=== PATIENT | female | born 1945 | race Caucasian/White ===

== ENCOUNTER 2020-06-28 07:34 | Day surgery (SDC) | payer MEDICARE, SELFPAY ==
[2020-06-24 08:20] VITALS: BMI 26.7
--- NOTE | 2020-06-24 08:28 | P.CONAN_ITS ---
Documented by User: Avril Clayton 06/25/20 09:49 HPI - Anesthesia Eval Consult details Narrative: 74yo F for colonoscopy PMFSH Past Medical History Medical History Hx of skin cancer, basal cell Hyperlipemia Recovering alcoholic Restless leg syndrome Surgical History Surgical History Hx of cholecystectomy Hx of colonoscopy History of Problems with Anesthesia: Yes (PONV) Social History Social History Are you a primary health care social worker to a significant other at home: No Do you presently have visiting nurse or other home services: No Smoking Status: Former smoker Smoking Quit Date: 1993 Second Hand Smoke Exposure: No Use of substances other than those prescribed or required for medical reasons: No Advance Directives: No Advance Directives Information Provided: No Advance Directives on File: No Recently lost weight without trying: No Meds Allergies Allergy/AdvReac Type Severity Reaction Status Date / Time hydrocodone [From VICODIN] Allergy Unknown UNK Unverified 06/10/20 17:22 fentanyl Allergy Unknown Verified 06/25/20 08:47 Home Medications Medication Instructions Recorded Confirmed Type atorvastatin 10 mg PO BEDTIME 06/23/20 06/23/20 History gabapentin 2 cap PO BID 06/23/20 06/23/20 History multivitamin 1 tab PO DAILY 06/23/20 06/23/20 History ropinirole 1 tab PO BEDTIME 06/23/20 06/23/20 History docusate sodium [Colace] 100 mg PO BID 06/24/20 06/24/20 History Exam Exam Date and Time: June 24, 2020 0828 Height,Weight and Vital Signs: Height 5 ft 7 in Weight 77.564 kg Pertinent Lab Results Pertinent Lab Results: Laboratory Tests 06/16/20 06/16/20 07:45 07:45 WBC 4.1 L Hgb 13.1 Hct 40.9 Plt Count 209 Sodium 142 Potassium 4.2 Chloride 109 H Bicarbonate 27 BUN 17 H Creatinine 0.67 Est GFR (Non-Af Amer) > 60 Assessment and Plan Assessment Anesthesia Assessment: Chart Reviewed (06/24/20 HT) Documented by User: Hieu Waggoner CRNA 06/28/20 08:16 [facility] Past Medical History Medical History Hx of skin cancer, basal cell Hyperlipemia Recovering alcoholic Restless leg syndrome Surgical History Surgical History Hx of cholecystectomy Hx of colonoscopy Social History Social History Are you a primary health care social worker to a significant other at home: No Do you presently have visiting nurse or other home services: No Smoking Status: Former smoker Smoking Quit Date: 1993 Second Hand Smoke Exposure: No Use of substances other than those prescribed or required for medical reasons: No Advance Directives: No Advance Directives Information Provided: No Advance Directives on File: No Recently lost weight without trying: No Meds Allergies Allergy/AdvReac Type Severity Reaction Status Date / Time hydrocodone [From VICODIN] Allergy Unknown UNK Unverified 06/10/20 17:22 fentanyl Allergy Unknown Verified 06/25/20 08:47 Home Medications Medication Instructions Recorded Confirmed Type atorvastatin 10 mg PO BEDTIME 06/23/20 06/23/20 History gabapentin 2 cap PO BID 06/23/20 06/23/20 History multivitamin 1 tab PO DAILY 06/23/20 06/23/20 History ropinirole 1 tab PO BEDTIME 06/23/20 06/23/20 History docusate sodium [Colace] 100 mg PO BID 06/24/20 06/24/20 History Assessment and Plan Assessment Anesthesia Assessment: Anesthesia Plan Discussed, Consent Obtained and Chart Reviewed Final Anesthetic Review NPO: Yes ASA Class: II Final Preanesthetic Review: No Changes in Pt Med Stat, Meds & Allergies Reviewed, Consent Obtained/Reviewed, Med/Surg/Anes Hx Reviewed and Anes Risks/Benef Reviewed Anesthetic Plan Anesthetic Plan: MAC: Disposition: Standard PACU Documented by User: Tomeka Lambert 06/28/20 08:18 PMFSH Past Medical History Medical History Hx of skin cancer, basal cell Hyperlipemia Recovering alcoholic Restless leg syndrome Surgical History Surgical History Hx of cholecystectomy Hx of colonoscopy Social History Social History Are you a primary health care social worker to a significant other at home: No Do you presently have visiting nurse or other home services: No Smoking Status: Former smoker Smoking Quit Date: 1993 Second Hand Smoke Exposure: No Use of substances other than those prescribed or required for medical reasons: No Advance Directives: No Advance Directives Information Provided: No Advance Directives on File: No Recently lost weight without trying: No Meds Allergies Allergy/AdvReac Type Severity Reaction Status Date / Time hydrocodone [From VICODIN] Allergy Unknown UNK Unverified 06/10/20 17:22 fentanyl Allergy Unknown Verified 06/25/20 08:47 Home Medications Medication Instructions Recorded Confirmed Type atorvastatin 10 mg PO BEDTIME 06/23/20 06/23/20 History gabapentin 2 cap PO BID 06/23/20 06/23/20 History multivitamin 1 tab PO DAILY 06/23/20 06/23/20 History ropinirole 1 tab PO BEDTIME 06/23/20 06/23/20 History docusate sodium [Colace] 100 mg PO BID 06/24/20 06/24/20 History Exam Airway Mallampati Class: II TM Dist: >3cm Denture: Upper Loose/Missing/Broken Teeth: No Heart: RRR Lungs: CTA
[2020-06-28 07:49] VITALS: BP 134/65; PULSE 75; RESP 20; TEMP 36.4; O2SAT 100
[2020-06-28] MEDS: Lactated Ringers 1,000 ML 100 ML IVCONT (07:58)
[2020-06-28 09:02] VITALS: BP 112/51; PULSE 60; RESP 18; TEMP 36.2; O2SAT 98
[2020-06-28 09:17] VITALS: BP 127/54; PULSE 53; O2SAT 99
--- NOTE | 2020-06-28 09:31 | HO.POSTANES ---
Post Anesthesia Evaluation Post Anesthesia Evaluation Vital Signs: Vital Signs Temp Pulse Resp BP Pulse Ox 06/28/20 09:17 53 127/54 L 99 06/28/20 09:02 97.2 F 60 18 112/51 L 98 06/28/20 07:49 97.6 F 75 20 134/65 100 Anesthesia: Monitored Mental Status: Awake Pain Control: Satisfactory Nausea/Vomiting: None Hydration: Adequate Anesthesia-Related Issues: No Anes. Related Issues
--- NOTE | 2020-06-28 10:20 | OP_ITS ---
SURGEON: Home Chow MD INDICATIONS: The patient presents for evaluation of colorectal cancer screening and prior history of tubular adenoma of the colon. Full consent has been obtained from her for this, including risks of bleeding and perforation. PREOPERATIVE DIAGNOSIS: POSTOPERATIVE DIAGNOSIS: PROCEDURE PERFORMED: Colonoscopy to cecum and terminal ileum. ESTIMATED BLOOD LOSS: COMPLICATIONS: ANESTHESIA: Monitored anesthesia care. ASSISTANTS: SPECIMENS: PREOPERATIVE DIAGNOSES: Colorectal cancer screening and prior history of tubular adenomas of the colon. POSTOPERATIVE DIAGNOSES: Colorectal cancer screening and prior history of tubular adenomas of the colon, diverticulosis and internal hemorrhoids. DESCRIPTION OF PROCEDURE: The patient was placed in the left lateral decubitus position. The digital rectal exam revealed no abnormalities. The Olympus video pediatric colonoscope was entered into the rectum and advanced easily to the cecum. Once in the cecum, I did identify normal-appearing cecal pouch with appendiceal orifice and a normal-appearing ileocecal valve. The terminal ileum was cannulated and appeared normal. The scope was withdrawn back in the colon. The entire cecum and ileocecal valve appeared normal. The scope was slowly withdrawn assessing all mucosal surfaces carefully. For the most part, preparation was excellent throughout the colon other than some small areas of stool, which were irrigated and washed away as best as possible. I did not visualize any sign of polyps, colitis, nor angiodysplasia. There was a mild amount of sigmoid diverticulosis. In the rectum, scope was retroflexed visualizing internal hemorrhoids, but no other pathology. The rectal mucosa appeared normal. The scope was straightened out and withdrawn from the patient. She tolerated the procedure well and was returned to recovery area in stable condition. IMPRESSION: 1. Diverticulosis. 2. Internal hemorrhoids. PLAN: Given the patient's negative exam, a negative exam in 2013, and her age, I do not think she will need any further screening colonoscopies in the future. She will otherwise see me on a p.r.n. basis. MD SIMONE Mitchell/BRISA / [id number]
== END 2020-06-28 10:28 | disposition home or self-care (01) ==
PROVIDERS: PCP Internal Medicine; Visit Provider Internal Medicine
PROC: 0DJD8ZZ Inspection of Lower Intestinal Tract, Via Natural or Artificial Opening Endoscopic (ICD-10-PCS; CPT 45378; principal; 2020-06-28 08:30)
DX: Z12.11 Encounter for screening for malignant neoplasm of colon (principal); Z86.010 Personal history of colon polyps; K57.30 Diverticulosis of large intestine without perforation or abscess without bleeding; K64.8 Other hemorrhoids; E78.5 Hyperlipidemia, unspecified; Z79.899 Other long term (current) drug therapy; Z90.49 Acquired absence of other specified parts of digestive tract; Z88.8 Allergy status to other drugs, medicaments and biological substances
CPT/HCPCS: G0105

== ENCOUNTER 2020-11-30 07:49 | Outpatient (REF) | payer MEDICARE, SELFPAY ==
[2020-11-30 12:10] LABS: Alanine Aminotransferase 24 U/L (0-31); Albumin Level 4.1 g/dL (3.5-5.0); Alkaline Phosphatase 44 U/L (39-117); Anion Gap 12 (12-20); Aspartate Amino Transferase 19 U/L (5-31); Bilirubin Total 0.3 mg/dL (0.0-1.0); Blood Urea Nitrogen 16 mg/dL (9-16); Calcium 9.2 mg/dL (8.4-10.2); Carbon Dioxide 26 mmol/L (22-29); Chloride 108 mmol/L (96-108); Cholesterol 218 mg/dL; Estimated Glomerular Filt Rate > 60; Glucose Fasting 96 mg/dL (60-99); HDL Cholesterol 75 mg/dL; LDL Cholesterol Calculated 127 mg/dl; Potassium 3.9 mmol/L (3.3-5.1); Sodium 142 mmol/L (135-145); Total Protein 6.4 g/dL (6.5-8.0); Triglycerides 80 mg/dL
== END 2020-11-30 07:50 | disposition home or self-care (01) ==
LOC: HO.HMGCLDS 07:49
PROVIDERS: PCP Internal Medicine; Visit Provider Internal Medicine
DX: E78.00 Pure hypercholesterolemia, unspecified (principal)
CPT/HCPCS: 36415; 80053; 80061

== ENCOUNTER 2021-01-13 15:00 | Outpatient (RCR) | payer MEDICARE, SELFPAY | END 2021-06-02 12:02 | disposition home or self-care (01) | LOC: HO.PTCHIC 15:00 | PROVIDERS: PCP Internal Medicine; Visit Provider Physical Therapist | DX: S82.842A Displaced bimalleolar fracture of left lower leg, initial encounter for closed fracture (principal) | CPT/HCPCS: 97014; 97110; 97112; 97140; 97161 ==

== ENCOUNTER 2021-03-29 15:54 | Outpatient (REF) | payer MEDICARE, SELFPAY ==
--- NOTE | ~2021-03-29 | XR_ITS ---
EXAMINATION: XR KNEE, LEFT XR, TIBIA AND FIBULA, LEFT CLINICAL INFORMATION: Pain. COMPARISON: Ankle study of 07/30/2019. TECHNIQUE: AP and lateral views of the left tibia and fibula. Four views of the left knee. FINDINGS: LEFT KNEE: Views of the left knee do not demonstrate any evidence of acute fracture or dislocation. There is mild narrowing of the medial joint space compartment with minimal marginal spurring seen. No knee effusion is appreciated. There is spurring at the undersurface of the patella. Patellar spur at the insertion of the quadriceps tendon is seen. LEFT TIBIA AND FIBULA: AP and lateral views of the left tibia and fibula demonstrate some remodeling of the distal fibula consistent with healed fracture. There is some calcification of the syndesmosis. Ankle mortise appears intact. There is some degenerative spurring about the tibiotalar joint and fibulotalar joint. Calcaneal spurs at the sites of insertion of the Achilles and plantar tendons are seen. XR/XR tibia fibula LT 2V IMPRESSION: Mild narrowing of the medial joint space compartment of the left knee. Degenerative change patellofemoral joint. 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
--- NOTE | ~2021-03-29 | XR_ITS ---
EXAMINATION: XR KNEE, LEFT XR, TIBIA AND FIBULA, LEFT CLINICAL INFORMATION: Pain. COMPARISON: Ankle study of 07/30/2019. TECHNIQUE: AP and lateral views of the left tibia and fibula. Four views of the left knee. FINDINGS: LEFT KNEE: Views of the left knee do not demonstrate any evidence of acute fracture or dislocation. There is mild narrowing of the medial joint space compartment with minimal marginal spurring seen. No knee effusion is appreciated. There is spurring at the undersurface of the patella. Patellar spur at the insertion of the quadriceps tendon is seen. LEFT TIBIA AND FIBULA: AP and lateral views of the left tibia and fibula demonstrate some remodeling of the distal fibula consistent with healed fracture. There is some calcification of the syndesmosis. Ankle mortise appears intact. There is some degenerative spurring about the tibiotalar joint and fibulotalar joint. Calcaneal spurs at the sites of insertion of the Achilles and plantar tendons are seen. XR/XR knee LT 4V IMPRESSION: Mild narrowing of the medial joint space compartment of the left knee. Degenerative change patellofemoral joint. 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
== END 2021-03-29 15:55 | disposition home or self-care (01) ==
LOC: HO.XRAY 15:54
PROVIDERS: PCP Internal Medicine; Visit Provider Internal Medicine
DX: M25.561 Pain in right knee (principal); M79.662 Pain in left lower leg
CPT/HCPCS: 73564; 73590

== ENCOUNTER → 2021-04-18 07:47 | Outpatient (BNVA) | payer MEDICARE, SELFPAY | PROVIDERS: PCP Internal Medicine; Visit Provider Physician Assistant | DX: M79.662 Pain in left lower leg (principal); Z87.81 Personal history of (healed) traumatic fracture | CPT/HCPCS: 99202; 99212 ==

== ENCOUNTER 2021-04-27 20:25 | Emergency (ER) | payer MEDICARE, SELFPAY ==
--- NOTE | ~2021-04-27 | US_ITS ---
EXAMINATION: US VENOUS ULTRASOUND WITH DOPPLER LOWER EXTREMITY, LEFT CLINICAL INFORMATION: Calf pain, rule out DVT COMPARISON: None TECHNIQUE: Ultrasound of the deep veins is performed from the hip to the calf with compression sonography and color and pulse Doppler assessment. Spectral analysis with color-flow imaging is performed. FINDINGS: There is normal venous compression and respiratory variation and augmented flow. The visualized common femoral vein, superficial femoral vein, profunda femoral vein, popliteal vein, and the trifurcation region shows no evidence of deep venous thrombosis. There is no significant popliteal fossa cyst. If the patient's symptoms persist, followup ultrasound in 5 days 7 days might be of value to exclude proximal propagation from a non-visualized calf vein. US/US venous duplex LE IMPRESSION: No DVT demonstrated in the left lower extremity.
[2021-04-27 20:31] VITALS: BP 134/71; PULSE 69; RESP 16; O2SAT 97; BMI 28.0
--- NOTE | 2021-04-27 21:42 | ED_ITS ---
HPI - Extremity Injury (Lower) General Chief Complaint: Extremity Injury, Lower Stated Complaint: Left leg pain Time Seen by Provider: 04/27/21 21:41 Source: patient Mode of arrival: ambulatory Limitations: no limitations History of Present Illness HPI Narrative: 75-year-old female came in for evaluation of left leg pain. Constant pain started 3 weeks ago which is progressively getting worse, for the last 2 days pain is severe and more constant, pain is localized to the calf area, no swelling, no history of DVT, no shortness of breath. Patient had a history of breaking her right ankle twice in the past. Related Data Home Medications Medication Instructions Recorded Confirmed atorvastatin 10 mg tablet 10 mg PO BEDTIME 06/23/20 06/23/20 gabapentin 300 mg capsule 2 cap PO BID 06/23/20 06/23/20 multivitamin 1 tab PO DAILY 06/23/20 06/23/20 ropinirole 2 mg tablet 1 tab PO BEDTIME 06/23/20 06/23/20 Allergies Allergy/AdvReac Type Severity Reaction Status Date / Time hydrocodone [From VICODIN] Allergy Unknown UNK Verified 04/27/21 20:37 fentanyl Allergy Unknown Verified 04/27/21 20:37 Review of Systems Review of Systems: All other systems are reviewed and are negative Constitutional: Reports as per HPI and Reports no additional constitutional complaints Eyes: Reports as per HPI and Reports no additional eye complaints Reports system reviewed and no additional complaints, except as documented Cardiovascular: Reports as per HPI and Reports no additional cardiovascular complaints Respiratory: Reports as per HPI and Reports no additional respiratory complaints Gastrointestinal: Reports as per HPI and Reports no additional gastrointestinal complaints Genitourinary: Reports no additional female genitourinary complaints Musculoskeletal: Reports no additional musculoskeletal complaints Skin/Breast: Reports system reviewed and no additional complaints, except as docu Psychiatric: Reports no additional psychiatric complaints Endocrine: Reports no additional endocrine complaints Hematologic/Lymphatic: Reports no additional hematologic/lymphatic complaints Allergic/Immunologic: Reports no additional allergic/immunologic complaints Reports system reviewed and no additional complaints, except as documented and Reports Abnormal speech present. [facility] Past Medical History Medical History Hx of skin cancer, basal cell Hyperlipemia Recovering alcoholic Restless leg syndrome Surgical History Hx of cholecystectomy Hx of colonoscopy Social History Social History Are you a primary palliative care physician to a significant other at home: No Do you presently have visiting nurse or other home services: No Second Hand Smoke Exposure: No Advance Directives: No Advance Directives Information Provided: Yes Current occupational status: retired Current occupation: Right Handed Physical Exam Vital Signs: Vital Signs: Last Vital Signs Pulse 69 04/27/21 20:31 Resp 16 04/27/21 20:31 BP 134/71 04/27/21 20:31 Pulse Ox 97 04/27/21 20:31 Body Mass Index 28.0 Vital signs have been reviewed as appeared to be correct. Blood pressure normal. Heart rate normal. Respiration rate normal. Temperature normal. Oxy gen saturation normal. Appearance: Alert. Oriented X3. No acute distress. Head: Normal external exam. Normocephalic. Atraumatic. No Plummer signs noted. No raccoon eyes noted Eyes: PERRLA. EOMI. Conjunctiva and sclera normal. Eyelids normal. ENT: TM's Normal. Pharynx normal. Uvula midline. Moist mucous membranes. No trismus noted. No drooling noted. No muffled voice noted. Neck: Normal inspection. Neck supple. FROM. No adenopathy. Thyroid Normal. No meningeal signs. No neck mass noted. CVS: Normal heart rate and rhythm. Heart sound normal. No murmurs noted. Pulses normal throughout. Respiratory: No respiratory distress. Painless inspiration. Breath sounds n ormal. No wheezes/rales/rhonchi noted. Chest nontender. No accessory muscle usage noted or decreased air movement noted. Abdomen: Soft and nontender. Bowel sounds normal in all 4 quadrants. No diste ntion noted. No organomegaly noted. No visible injury noted. Back: No CVA tenderness. Full range of motion noted. Skin: Skin warm and dry. Normal skin color. Normal skin turgor. No rashes/lesions/lacerations noted. Extremities: No lower extremity edema. Extremities exhibit normal range of m otion. Extremities nontender. Neuro: Oriented X 3. No motor deficit. No sensory deficit. Reflexes normal. Course Course Course Narrative: Assessment and plan. 75-year-old female came in for left calf pain for the past 2 weeks patient had a history of left ankle fracture twice, patient has an appointment with Orthopedics next week, patient had an ultrasound in the emergency department showed no DVT. Electrolytes are unremarkable to rule out hypokalemia and muscle cramps. MDM - Extremity Injury (Lower) Lab Data Attestation: I reviewed the patient's lab results. Result diagrams: 04/27/21 22:15 04/27/21 22:15 Labs: Lab Results 04/27/21 04/27/21 Range/Units 22:15 22:15 WBC 5.1 (4.8-10.8) X10*3/uL RBC 3.98 L (4.20-5.50) X10*6/uL Hgb 13.0 (12.0-16.0) g/dl Hct 38.6 (37-47) % MCV 97.0 (80-98) fL MCH 32.7 (27.0-33.0) pg MCHC 33.7 (31.0-35.0) g/dl RDW 13.1 (11.0-16.0) % Plt Count 176 (160-400) X10*3/uL MPV 9.2 L (9.4-12.3) fL Immature Gran % (Auto) 0.0 (0.0-0.4) % Neut % (Auto) 40.2 L (45-73) % Lymph % (Auto) 51.3 H (20-40) % Carver % (Auto) 6.1 (2-11) % Eos % (Auto) 1.8 (0-4) % Baso % (Auto) 0.6 (0-2) % Lymph # (Auto) 2.6 (1.2-4.9) X10*3/uL Carver # (Auto) 0.3 (0.1-1.2) X10*3/uL Eos # (Auto) 0.1 (0.0-0.4) X10*3/uL Baso # (Auto) 0.0 (0.0-0.2) X10*3/uL Abs Immat Gran (auto) 0.00 (0.00-0.03) X10*3/uL Absolute Neuts (auto) 2.0 (2.0-8.3) X10*3/uL Absolute Nucleated RBC 0.000 (0.0-0.012) X10*3/uL Nucleated RBC % (auto) 0.0 (0.0-0.2) /100WBC Sodium 143 (135-145) mmol/L Potassium 3.7 (3.3-5.1) mmol/L Chloride 110 H (96-108) mmol/L Carbon Dioxide 25 (22-29) mmol/L Anion Gap 12 (12-20) BUN 23 H (9-16) mg/dL Creatinine 0.70 (0.5-1.4) mg/dL Estim Creat Clear Calc 77.3 Estimated GFR > 60 Random Glucose 96 (60-115) mg/dL Calcium 9.0 (8.4-10.2) mg/dL Magnesium 2.2 (1.6-2.6) mg/dL Imaging Data Left lower extremities venous Doppler: Radiologist's impression: No DVT. Discharge Plan Discharge Clinical Impression: Cramps of left lower extremity Patient Disposition: Home, Self-Care Instructions: Leg Cramps (ED) Prescriptions: No Action multivitamin Tablet 1 tab PO DAILY RF: 0 ropinirole 2 mg tablet 1 tab PO BEDTIME RF: 0 gabapentin 300 mg capsule 2 cap PO BID RF: 0 atorvastatin 10 mg Tablet 10 mg PO BEDTIME RF: 0 Referrals: Rick Paulino MD [Primary Care Provider] - 2 days
[2021-04-27 22:20] LABS: MANUAL DIFF FLAG NO
[2021-04-27 22:21] LABS: Basophils Percent Auto 0.6 % (0-2); Eosinophils Absolute Auto 0.1 X10*3/uL (0.0-0.4); Eosinophils Percent Auto 1.8 % (0-4); Hematocrit 38.6 % (37-47); Lymphocytes Absolute Auto 2.6 X10*3/uL (1.2-4.9); Lymphocytes Percent Auto 51.3 % (20-40); Mean Corpuscular HGB Conc 33.7 g/dl (31.0-35.0); Mean Corpuscular Hemoglobin 32.7 pg (27.0-33.0); Mean Platelet Volume 9.2 fL (9.4-12.3); Monocytes Absolute Auto 0.3 X10*3/uL (0.1-1.2); Monocytes Percent Auto 6.1 % (2-11); Neutrophils Percent Auto 40.2 % (45-73); Platelet Count 176 X10*3/uL (160-400); Red Blood Count 3.98 X10*6/uL (4.20-5.50); Red Cell Distribution Width 13.1 % (11.0-16.0); White Blood Count 5.1 X10*3/uL (4.8-10.8)
[2021-04-27 22:54] LABS: Anion Gap 12 (12-20); Blood Urea Nitrogen 23 mg/dL (9-16); Carbon Dioxide 25 mmol/L (22-29); Chloride 110 mmol/L (96-108); Creatinine Clr Calc Pharmacy 77.3; Estimated Glomerular Filt Rate > 60; Glucose Random 96 mg/dL (60-115); Magnesium 2.2 mg/dL (1.6-2.6); Potassium 3.7 mmol/L (3.3-5.1); Sodium 143 mmol/L (135-145)
== END 2021-04-27 23:46 | disposition home or self-care (01) ==
PROVIDERS: Emergency Provider Emergency Medicine; PCP Internal Medicine
DX: R25.2 Cramp and spasm (principal); M79.605 Pain in left leg
CPT/HCPCS: 36415; 80048; 83735; 85025; 93971; 99283; 99284

== ENCOUNTER 2021-06-29 10:00 | Outpatient (RCR) | payer MEDICARE, SELFPAY | END 2021-06-29 11:18 | disposition home or self-care (01) | LOC: HO.PTCHIC 10:00 | PROVIDERS: Visit Provider Physical Therapist | DX: S82.842D Displaced bimalleolar fracture of left lower leg, subsequent encounter for closed fracture with routine healing (principal) | CPT/HCPCS: 97110; 97112; 97150; 97161; 97530 ==

== ENCOUNTER 2021-11-30 12:03 | Outpatient (REF) | payer MEDICARE, SELFPAY ==
[2021-11-30 13:49] LABS: MANUAL DIFF FLAG NO
[2021-11-30 13:54] LABS: Appearance Urine CLEAR; Color Urine YELLOW; Glucose Urine UA NEG (NEG); Leukocyte Esterase Urine NEG (NEG); Nitrite Urine NEG (NEG); PH 5.5 (5.0-8.0); Specific Gravity - Urine 1.025 (1.005-1.025); Urine Blood NEG (NEG); Urine Ketones NEG (NEG); Urine Protein NEG (NEG-TRACE)
[2021-11-30 13:57] LABS: Basophils Percent Auto 0.7 % (0-2); Eosinophils Absolute Auto 0.1 X10*3/uL (0.0-0.4); Eosinophils Percent Auto 2.1 % (0-4); Hematocrit 39.4 % (37.0-47.0); Hemoglobin 12.7 g/dl (12.0-16.0); Lymphocytes Absolute Auto 1.6 X10*3/uL (1.2-4.9); Mean Corpuscular HGB Conc 32.2 g/dl (31.0-35.0); Mean Corpuscular Hemoglobin 31.6 pg (27.0-33.0); Mean Platelet Volume 9.8 fL (9.4-12.3); Monocytes Absolute Auto 0.3 X10*3/uL (0.1-1.2); Monocytes Percent Auto 7.3 % (2-11); Neutrophils Absolute Auto 2.3 x10*3/uL (2.0-8.3); Neutrophils Percent Auto 52.9 % (45-73); Platelet Count 204 X10*3/uL (160-400); Red Blood Count 4.02 X10*6/uL (4.20-5.50); Red Cell Distribution Width 14.2 % (11.0-16.0); White Blood Count 4.3 X10*3/uL (4.8-10.8)
[2021-11-30 14:19] LABS: Alanine Aminotransferase 13 U/L (0-31); Alkaline Phosphatase 36 U/L (39-117); Anion Gap 12 (12-20); Aspartate Amino Transferase 16 U/L (5-31); Bilirubin Total 0.5 mg/dL (0.0-1.0); Blood Urea Nitrogen 23 mg/dL (9-16); C Reactive Protein 0.12 mg/dL (< or = 0.50); Calcium 9.3 mg/dL (8.4-10.2); Carbon Dioxide 24 mmol/L (22-29); Chloride 110 mmol/L (96-108); Estimated Glomerular Filt Rate > 60; Glucose Random 94 mg/dL (60-115); Potassium 5.2 mmol/L (3.3-5.1); Sodium 141 mmol/L (135-145); Total Protein 6.4 g/dL (6.5-8.0)
== END 2021-11-30 12:04 | disposition home or self-care (01) ==
LOC: HO.10HDL 12:03
PROVIDERS: Visit Provider Internal Medicine
DX: R10.9 Unspecified abdominal pain (principal); M54.9 Dorsalgia, unspecified; R25.2 Cramp and spasm
CPT/HCPCS: 36415; 80053; 81003; 85025; 86140; 87086

== ENCOUNTER 2021-12-28 13:51 | Outpatient (REF) | payer MEDICARE, SELFPAY ==
--- NOTE | ~2021-12-28 | US_ITS ---
EXAMINATION: US PELVIS CLINICAL INFORMATION: Pelvic cramping. COMPARISON: None TECHNIQUE: Ultrasound of the pelvis is performed using both transabdominal and transvaginal transducers along with Doppler. Transvaginal imaging is performed due to inadequate visualization transabdominally. FINDINGS: Uterus: The uterus is retroverted and measures 5.7 x 2.6 x 4.4 cm. Heterogeneous myometrium without any discrete focal lesion. The double wall endometrial thickness is 1.0 cm, appear heterogeneous and shows at least one 2 to 3 mm hypoechoic area near the fundus. No visible fibroid. Adnexa: Right ovary is visualized. There is normal color flow to the adnexa. There is no ovarian torsion. There is no pelvic ascites or fluid collection. Right ovary measures 2.0 x 0.9 x 1.5 cm. There is a dominant approximately 1 cm follicle present. The right ovary previously measured 1.2 x 0.8 x 1.1 cm. Nonvisualized left ovary without any left-sided adnexal mass. US/US pelvic and transvaginal IMPRESSION: 1. Heterogeneous myometrium and heterogeneous thickened endometrial stripe measuring 1.0 cm. Given the postmenopausal status, follow-up ERP ANALYST consultation and possible endometrial biopsy may be considered for further clarification. 2. Sonographically unremarkable right ovary and nonvisualized left ovary without any left-sided adnexal mass.
== END 2021-12-28 13:52 | disposition home or self-care (01) ==
LOC: HO.HMGCX 13:51
PROVIDERS: Visit Provider Internal Medicine
DX: R25.2 Cramp and spasm (principal)
CPT/HCPCS: 76830; 76856

== ENCOUNTER 2022-03-03 11:09 | Outpatient (REF) | payer MEDICARE, SELFPAY | END 2022-03-03 11:10 | disposition home or self-care (01) | LOC: HO.HOSX 11:09 | PROVIDERS: Visit Provider Orthopaedic Surgery | DX: M16.0 Bilateral primary osteoarthritis of hip (principal); Z87.81 Personal history of (healed) traumatic fracture | CPT/HCPCS: 99202 ==

== ENCOUNTER → 2022-05-11 12:29 | Outpatient (BNVA) | payer MEDICARE, SELFPAY | PROVIDERS: PCP Internal Medicine; Visit Provider Physician Assistant | DX: Z01.818 Encounter for other preprocedural examination (principal); M16.12 Unilateral primary osteoarthritis, left hip | CPT/HCPCS: 99212 ==

== ENCOUNTER 2022-05-16 05:52 | Inpatient (IN) | payer MEDICARE, SELFPAY ==
--- NOTE | 2022-04-12 10:10 | ECG_ITS ---
Test Reason : PREOP Blood Pressure : / mmHG Vent. Rate : 065 BPM Atrial Rate : 065 BPM P-R Int : 160 ms QRS Dur : 084 ms QT Int : 396 ms P-R-T Axes : 069 -27 024 degrees QTc Int : 411 ms Normal sinus rhythm Normal ECG When compared with ECG of 02-MAR-2009 15:49, No significant change was found Referred By: All Bhat Electronically Signed By:Ruben Galindo
[2022-04-12 10:30] LABS: MANUAL DIFF FLAG NO
[2022-04-12 12:03] LABS: Basophils Percent Auto 0.4 % (0-2); Eosinophils Absolute Auto 0.1 X10*3/uL (0.0-0.4); Hematocrit 37.4 % (37.0-47.0); Hemoglobin 12.1 g/dl (12.0-16.0); Lymphocytes Absolute Auto 1.6 X10*3/uL (1.2-4.9); Lymphocytes Percent Auto 32.2 % (20-40); Mean Corpuscular HGB Conc 32.4 g/dl (31.0-35.0); Mean Corpuscular Hemoglobin 32.4 pg (27.0-33.0); Mean Platelet Volume 9.9 fL (9.4-12.3); Monocytes Absolute Auto 0.5 X10*3/uL (0.1-1.2); Monocytes Percent Auto 9.5 % (2-11); Neutrophils Absolute Auto 2.8 x10*3/uL (2.0-8.3); Neutrophils Percent Auto 55.9 % (45-73); Platelet Count 195 X10*3/uL (160-400); Red Blood Count 3.74 X10*6/uL (4.20-5.50); Red Cell Distribution Width 14.1 % (11.0-16.0)
[2022-04-12 12:57] LABS: Anion Gap 8 (12-20); Blood Urea Nitrogen 24 mg/dL (9-16); Calcium 9.2 mg/dL (8.4-10.2); Carbon Dioxide 28 mmol/L (22-29); Chloride 108 mmol/L (96-108); Estimated Glomerular Filt Rate > 60; Glucose Random 90 mg/dL (60-115); Sodium 139 mmol/L (135-145)
[2022-05-02 12:03] VITALS: BP 114/59; PULSE 77; RESP 20; O2SAT 97; BMI 28.5
--- NOTE | 2022-05-02 12:26 | P.CONAN_ITS ---
Documented by User: Avril Clayton NP 05/02/22 12:39 HPI - Anesthesia Eval Consult details Narrative: 76yo F for Left Hip Total Replacement Clearance pending PONV after conscious sedation 2013. No issue after MAC 2019. PMF Active Problems Active Problems: All Active Problems (Updated 05/01/22 @ 10:18 by Ana Foley RN) History of fracture of left ankle (Acute) Bilateral primary osteoarthritis of hip (Acute) Past Medical History Medical History Hx of skin cancer, basal cell Hyperlipemia Osteoarthritis Recovering alcoholic Restless leg syndrome Family History Family history of problems with anesthesia: No Surgical History Surgical History Hx of cholecystectomy Hx of colonoscopy History of Problems with Anesthesia: Yes (PONV with Conscious Sedation) Social History Social History Household Members: Spouse Housing: House Are you a primary care transition manager to a significant other at home: No Do you presently have visiting nurse or other home services: No Patient Tobacco Use Status: Former Tobacco user Quit Date: 29 y.o Tobacco use type: Cigarette Second Hand Smoke Exposure: No Current occupational status: retired Current occupation: Right Handed Meds Allergies Allergy/AdvReac Type Severity Reaction Status Date / Time hydrocodone [From VICODIN] Allergy Unknown Nausea and Verified 05/11/22 12:37 Vomiting fentanyl Allergy Nausea and Verified 05/11/22 12:37 Vomiting Home Medications Medication Instructions Recorded Confirmed Last Taken Type gabapentin 300 mg capsule 2 cap PO BID 06/23/20 05/01/22 05/16/22 History pravastatin 20 mg tablet 1 tab PO BEDTIME 05/01/22 05/01/22 05/15/22 History calcium carbonate 600 mg calcium 600 mg PO DAILY 05/02/22 05/16/22 05/15/22 History (1,500 mg) tablet (Calcium) docusate sodium 100 mg capsule 100 mg PO BID 05/02/22 05/02/22 05/15/22 History (Stool Softener) magnesium oxide 500 mg capsule 500 mg PO DAILY 05/02/22 05/02/22 05/15/22 History multivitamin 1 tab PO DAILY 0805/02/22 05/15/22 History tramadol 50 mg tablet 50 mg PO BID PRN Pain 05/02/22 05/02/22 05/15/22 History ropinirole 2 mg tablet 1 tab PO BEDTIME 05/16/22 05/16/22 Unknown History Exam Exam Date and Time: May 02, 2022 1226 Height,Weight and Vital Signs: Height 5 ft 7 in Weight 82.554 kg Last Vital Signs Pulse 77 05/02/22 12:03 Resp 20 05/02/22 12:03 BP 114/59 L 05/02/22 12:03 Pulse Ox 97 05/02/22 12:03 O2 Del Method 05/02/22 12:03 Pertinent Lab Results Pertinent Lab Results: Laboratory Tests 04/12/22 04/12/22 10:27 10:27 WBC 5.0 RBC 3.74 L Hgb 12.1 Hct 37.4 MCV 100.0 H MCH 32.4 MCHC 32.4 RDW 14.1 Plt Count 195 MPV 9.9 Immature Gran % (Auto) 0.0 Neut % (Auto) 55.9 Lymph % (Auto) 32.2 Johnson % (Auto) 9.5 Eos % (Auto) 2.0 Baso % (Auto) 0.4 Lymph # (Auto) 1.6 Johnson # (Auto) 0.5 Eos # (Auto) 0.1 Baso # (Auto) 0.0 Abs Immat Gran (auto) 0.00 Absolute Neuts (auto) 2.8 Absolute Nucleated RBC 0.000 Nucleated RBC % (auto) 0.0 Sodium 139 Potassium 5.0 Chloride 108 Carbon Dioxide 28 Anion Gap 8 L BUN 24 H Creatinine 0.69 Estim Creat Clear Calc TNP Estimated GFR > 60 Random Glucose 90 Calcium 9.2 Narrative Narrative: EKG 03/2022 Vent. Rate : 065 BPM ? ? Atrial Rate : 065 BPM ?? P-R Int : 160 ms? QRS Dur : 084 ms ? ? QT Int : 396 ms ? ? ? P-R-T Axes : 069 -27 024 degrees ?? QTc Int : 411 ms ? Normal sinus rhythm Normal ECG When compared with ECG of 02-MAR-2009 15:49, No significant change was found Airway Mallampati Class: I TM Dist: >3cm Neck ROM: Full Denture: Upper and Lower Heart: RRR Lungs: CTAB Assessment and Plan Assessment Anesthesia Assessment: Anesthesia Plan Discussed and PAT Visit Final Anesthetic Review Family History of Problems with Anesthesia: No History of Problems with Anesthesia: Yes (PONV with Conscious Sedation) Documented by User: Luke Marques MD 05/16/22 18:32 HPI - Anesthesia Eval Consult details Narrative: 76yo F for Left Hip Total Replacement PONV after conscious sedation 2013. No issue after MAC 2019. [facility], [facility] Past Medical History Medical History Hx of skin cancer, basal cell Hyperlipemia Osteoarthritis Recovering alcoholic Restless leg syndrome Surgical History Surgical History Hx of cholecystectomy Hx of colonoscopy Social History Social History Household Members: Spouse Housing: House Are you a primary care transition manager to a significant other at home: No Do you presently have visiting nurse or other home services: No Patient Tobacco Use Status: Former Tobacco user Quit Date: 29 y.o Tobacco use type: Cigarette Second Hand Smoke Exposure: No Current occupational status: retired Current occupation: Right Handed Meds Allergies Allergy/AdvReac Type Severity Reaction Status Date / Time hydrocodone [From VICODIN] Allergy Unknown Nausea and Verified 05/11/22 12:37 Vomiting fentanyl Allergy Nausea and Verified 05/11/22 12:37 Vomiting Home Medications Medication Instructions Recorded Confirmed Last Taken Type gabapentin 300 mg capsule 2 cap PO BID 06/23/20 05/01/22 05/16/22 History pravastatin 20 mg tablet 1 tab PO BEDTIME 05/01/22 05/01/22 05/15/22 History calcium carbonate 600 mg calcium 600 mg PO DAILY 05/02/22 05/16/22 05/15/22 History (1,500 mg) tablet (Calcium) docusate sodium 100 mg capsule 100 mg PO BID 05/02/22 05/02/22 05/15/22 History (Stool Softener) magnesium oxide 500 mg capsule 500 mg PO DAILY 05/02/22 05/02/22 05/15/22 History multivitamin 1 tab PO DAILY 05/02/22 05/02/22 05/15/22 History tramadol 50 mg tablet 50 mg PO BID PRN Pain 05/02/22 05/02/22 05/15/22 History ropinirole 2 mg tablet 1 tab PO BEDTIME 05/16/22 05/16/22 Unknown History Exam Airway Mallampati Class: II Loose/Missing/Broken Teeth: Yes Assessment and Plan Assessment Anesthesia Assessment: Chart Reviewed Final Anesthetic Review NPO: Yes ASA Class: II Final Preanesthetic Review: Meds/Allgs Chart Reviewed, Consent Obtained/Reviewed and Anes Risks/Benef Reviewed Patient Risk: Intermediate Procedure Risk: Intermediate Anesthetic Plan Anesthetic Plan: GA Disposition: Inp. Admit - Standard Bed
[2022-05-02 15:50] LABS: MRSA Nasal PCR NEGATIVE (Negative); SA Nasal PCR NEGATIVE (Negative)
--- NOTE | 2022-05-05 08:24 | HP_ITS ---
DATE OF SERVICE: 05/16/2022 HISTORY OF PRESENT ILLNESS: The patient is a 76-year-old female who was seen in the office on 05/03/2022, for preoperative evaluation prior to left total hip replacement with Dr. Bhat scheduled for 05/16/2022. PRESENT MEDICATIONS: 1. Gabapentin 600 mg p.o. b.i.d. 2. Ropinirole 2 mg a day. 3. Pravastatin 20 mg a day. 4. Tramadol 50 mg p.o. b.i.d. p.r.n. for pain control. PAST MEDICAL HISTORY: Significant for arthritis, elevated cholesterol, restless legs syndrome, diverticulosis, history of left ankle fracture, Lyme disease in 2008, gallbladder in 2020, history of appendix surgery, osteoarthritis of the knees. FAMILY HISTORY: Mother at 95. Father at 95. One brother. SOCIAL HISTORY: She is , has 3 children. She is retired. REVIEW OF SYSTEMS: On exam, she is awake, alert, in no distress. Her weight is up 6 pounds. No fevers, chills, or sweats. No headaches or dizziness. No peripheral edema. No chest pains or palpitations. No shortness of breath or coughing. No abdominal pain or heartburn. No dysuria, arthritis in joints. Sleep and appetite normal. Speech is normal. No complaints of hay fever. No skin complaints. ALLERGIES: SHE LISTS AN ALLERGY TO VICODIN, NOT SURE WHAT THE REACTION IS. PHYSICAL EXAMINATION: VITAL SIGNS: Temperature is 98.5, pulse 78, respirations 12, blood pressure 108/64, weight is 184. Pupils equal, pharynx clear. TMs clear. NECK: Supple. No lymph nodes, bruits or masses. HEART: Sounds S1 and S2. Regular rate and rhythm. LUNGS: Clear. ABDOMEN: Soft, nontender. Positive bowel sounds. No HSM. EXTREMITIES: No clubbing, cyanosis, or edema. 1 to 2+ pulses. NEUROLOGICAL: Nonfocal. Cranial nerves II through XII are intact. She is a nonsmoker. ASSESSMENT AND PLAN: She is medically stable for the proposed procedure. I will be available if there are any medical questions. IMMUNIZATIONS: She has had 2 pneumonia shots in 2012 and July 2020. She has had a Tdap in 06/12. She had a shingles vaccine at 61. Her last colonoscopy was in June 2020. MD WILVER Clemens/BRISA / [id number]
[2022-05-16] VITALS (22 sets, daily range): BP systolic 96–127; BP diastolic 43–70; PULSE 54–79; RESP 10–19; TEMP 36.3–37.4; O2SAT 95–100
--- NOTE | ~2022-05-16 | XR_ITS ---
EXAMINATION: XR PELVIS CLINICAL INFORMATION: Post left hip replacement COMPARISON: Previous x-ray February 2022 TECHNIQUE: AP view of the pelvis. FINDINGS: There is a new left hip replacement in satisfactory position. No fracture or dislocation is seen. There are postoperative changes to the soft tissues. There is arthritis at the right hip joint. XR/XR pelvis 1-2V IMPRESSION: Satisfactory appearance of left hip replacement.
[2022-05-16] MEDS: oxyCODONE HCl ER 10 MG TAB.ER.12H PO ×2 (06:10→17:44)
[2022-05-16 06:41] LABS: COVID-19 Test Negative (Negative)
[2022-05-16] MEDS: Scopolamine 1.5 MG PATCH.TD.3 TRANSDERMA (06:48)
[2022-05-16] MEDS: Lactated Ringers 1,000 ML 100 ML IVCONT ×3 (06:48→21:36)
--- NOTE | 2022-05-16 07:39 | MHC.SHP ---
Pre-Procedural Eval Section A Date of Service: 05/16/22 The patient is an INPATIENT: No Changes since office visit: Yes Patient answered all questions; No Cold of Flu in the past 2 weeks, No New Medical Problems and No Changes in Medication The History & Physical has been completed within 30 days and I have reviewed it.: Yes Section B Chief Complaint: LT KIANA Allergies: Allergies Allergy/AdvReac Type Severity Reaction Status Date / Time hydrocodone [From VICODIN] Allergy Unknown Nausea and Verified 05/11/22 12:37 Vomiting fentanyl Allergy Nausea and Verified 05/11/22 12:37 Vomiting Plan I have reviewed the history and physical and performed a pertinent physical examination on my patient. No changes have occurred unless specified.
--- NOTE | 2022-05-16 09:24 | P.BOP_ITS ---
Brief Operative Note Date of Service: 05/16/22 Pre-op diagnosis: Left hip OA Post-op diagnosis: same Procedure: Left KIANA Implants: [place] Trident2 54/post lip [place] Accolade2 #5 132deg with 36 +0 ceramic femoral head Surgeon: All Bhat MD Anesthesia: GETA and local Was an Fruit Thinner used for this Procedure?: Yes Fruit Thinner: Sapna Charles Estimated blood loss (mL): 300 IV fluids (mL): 1,000 Pathology: other Condition: stable Disposition: PACU
--- NOTE | 2022-05-16 09:34 | P.OP_ITS ---
Operative Note Operative Note Date of Service: 05/16/22 Narrative: Date of Service: 05/16/22 Pre-op diagnosis: Left hip OA Post-op diagnosis: same Procedure: Left KIANA Implants: [place] Trident2 54/post lip [place] Accolade2 #5 132deg with 36 +0 ceramic femoral head Surgeon: All Bhat MD Anesthesia: GETA and local Was an Studio Hand used for this Procedure?: Yes Studio Hand: Sapna Charles Estimated blood loss (mL): 300 IV fluids (mL): 1,000 Pathology: other Condition: stable Disposition: PACU Procedure in detail: Patient was brought into the operating room and placed in the right lateral decubitus position. All bony prominences were well padded and the limb was prepped and draped in standard sterile fashion. Time-out was called to identify proper site procedure proper surgeon IV antibiotics and 1 g of transaxemic acid were administered. I began by making a curvilinear incision over the posterolateral aspect of the greater trochanter. Dissection was taken down to the tensor fascia which was incised in line with the incision and a Charnley retractor was placed. Cautery was used to maintain hemostasis. The hip was internally rotated and the external rotators were identified. The vessels were cauterized and a full-thickness capsular/external rotator layer was developed starting just proximal to the piriformis. This layer was tagged and a dull Hohmann retractor was placed underneath the neck in the hip was dislocated. A neck cut was made 1 cm proximal to the lesser trochanter and the head and neck were removed and measured as a 49mm on the back table. I started with a 44mm and sequentially reamed up to a 54 and impacted a 54mm cup at approximately 45 degrees of inclination and 25 degrees of version. I then placed a lipped liner and turned my attention to the femur. I identified the piriformis insertion and used this as a starting point for my yueie cutter. The medius tendon was protected with a Hibs retractor. I then used a Charnley awl to identify the canal and a curved curette to remove the lateral bone. I irrigated copiously. I then sequentially broached in the patient's natural version to a size #5 and placed my 132deg trial implants. Using a trail head I took the hip through range of motion. I was very satisfied with the stability and length using a +0. The -2.5 dislocated at about 60 deg in FADIR so I placed a +0 head that was stable at all ranges.. Therefore I removed all instrumentation and copiously irrigated. I placed my final femoral implant and again took the hip through range of motion and was satisfied with the stability and length. A+0 36 ceramic femoral head was impacted in place. I then irrigated for 3 minutes with iodine and placed 1 g of local tranaxemic acid. I then performed a capsular closure with 2.0 fiberwire, Wiliam's fascia with 0 Vicryl, subcuticular with 2-0 Vicryl and the skin with roma. Patient was placed into a sterile dressing. Radiographs were obtained at the completion of the case and I was satisfied with the component position. Patient was extubated brought to the recovery room in stable condition.
--- NOTE | 2022-05-16 11:43 | PHA.MEDREC ---
Pharmacy Consult ? Medication Reconciliation Pharmacy has completed the medication reconciliation. Reviewed med rec done by nursing (Ana & Fabiana). Cross-referenced with claim history as well.
[2022-05-16] MEDS: HYDROmorphone HCl 0.5 MG/0.5 ML SYRINGE 0.25 MG IVPUSH ×2 (13:07→13:12)
[2022-05-16] MEDS: ceFAZolin Sodium/Dextrose,Iso 2 GM/50 ML PIGGYBACK IV (13:20)
[2022-05-16] MEDS: oxyCODONE HCl Immed Release 5 MG TABLET PO ×2 (14:50→21:33)
[2022-05-16] MEDS: Acetaminophen 325 MG TABLET 650 MG PO ×2 (14:50→23:04)
[2022-05-16] MEDS: Docusate Sodium 100 MG CAPSULE PO (17:51)
[2022-05-16] MEDS: Gabapentin 300 MG CAPSULE 600 MG PO ×2 (17:52→21:36)
[2022-05-17] MEDS: HYDROmorphone HCl 0.5 MG/0.5 ML SYRINGE 0.25 MG IVPUSH (02:14)
[2022-05-17 04:00] VITALS: BP 108/54; PULSE 68; RESP 17; TEMP 36.5; O2SAT 94
[2022-05-17] MEDS: oxyCODONE HCl Immed Release 5 MG TABLET PO ×2 (05:18→15:42)
[2022-05-17 05:52] LABS: MANUAL DIFF FLAG NO
[2022-05-17 05:56] LABS: Hemoglobin 9.5 g/dl (12.0-16.0); Lymphocytes Percent Auto 24.3 % (20-40); Mean Platelet Volume 9.8 fL (9.4-12.3); Monocytes Percent Auto 11.6 % (2-11); PLT CLUMP 1; SCAN SMEAR FLAG 1
[2022-05-17 05:58] LABS: Basophils Percent Auto 0.1 % (0-2); Eosinophils Percent Auto 0.6 % (0-4); Imm Gran Abs Auto 0.02 X10*3/uL (0.00-0.03); Imm Gran Pct Auto 0.3 % (0.0-0.4); Lymphocytes Absolute Auto 1.7 X10*3/uL (1.2-4.9); Mean Corpuscular HGB Conc 32.8 g/dl (31.0-35.0); Mean Corpuscular Hemoglobin 32.6 pg (27.0-33.0); Mean Corpuscular Volume 99.7 fL (80.0-98.0); Monocytes Absolute Auto 0.8 X10*3/uL (0.1-1.2); Neutrophils Absolute Auto 4.3 x10*3/uL (2.0-8.3); Neutrophils Percent Auto 63.1 % (45-73); Red Blood Count 2.91 X10*6/uL (4.20-5.50)
[2022-05-17 06:13] LABS: Platelet Count 137 X10*3/uL (160-400); White Blood Count 6.8 X10*3/uL (4.8-10.8)
[2022-05-17 06:14] LABS: Anion Gap 10 (12-20); Blood Urea Nitrogen 16 mg/dL (9-16); Calcium 8.2 mg/dL (8.4-10.2); Carbon Dioxide 28 mmol/L (22-29); Chloride 106 mmol/L (96-108); Creatinine Clr Calc Pharmacy 80.1; Estimated Glomerular Filt Rate > 60; Glucose Fasting 108 mg/dL (60-99); Potassium 4.5 mmol/L (3.3-5.1); Sodium 139 mmol/L (135-145)
--- NOTE | 2022-05-17 06:41 | HO.PM.IMCN ---
History of Present Illness Data of Consult Service Date: 05/17/22 Primary Care Provider: Rick Paulino MD HPI 76-year-old female with past medical history of HLD and osteoarthritis, otherwise healthy presents to the hospital for elective left hip replacement where ass to see this patient in consult for medical management patient is status post surgery, she appears comfortable, reports pain is well controlled at this time, she has been urinating with no dysuria, no frequency or urgency, she has not had a bowel movement yet but has been passing gas, she denies any chest pain, no shortness of breath, no abdominal pain, no urinary symptoms and no lower extremity edema. Vitals reviewed, has slightly low bp Review of Systems Review of Systems: Yes all other systems are reviewed and are negative [facility] Medical History Hx of skin cancer, basal cell Hyperlipemia Osteoarthritis Recovering alcoholic Restless leg syndrome Family History (Updated 05/17/22 @ 06:43 by Feliciano Saeed MD) Other No family history of coronary artery disease Surgical History Hx of cholecystectomy Hx of colonoscopy Social History Household Members: Spouse Housing: House Are you a primary hearing care professional to a significant other at home: No Do you presently have visiting nurse or other home services: No Patient Tobacco Use Status: Former Tobacco user Quit Date: 29 y.o Tobacco use type: Cigarette Second Hand Smoke Exposure: No Current occupational status: retired Current occupation: Right Handed Meds Allergies Allergy/AdvReac Type Severity Reaction Status Date / Time hydrocodone [From VICODIN] Allergy Unknown Nausea and Verified 05/11/22 12:37 Vomiting fentanyl Allergy Nausea and Verified 05/11/22 12:37 Vomiting Active Medications: Current Medications Acetaminophen (Acetaminophen 325 Mg Tablet) 650 mg PO Q6H PRN PRN Reason: Pain, Mild (Pain Scale 1-3) Last Admin: 05/16/22 23:04 Dose: 650 mg Aspirin (Aspirin 325 Mg Tablet) 325 mg PO BID [facility] Celecoxib (Celecoxib 200 Mg Capsule) 200 mg PO BID [facility] Last Admin: 05/16/22 21:37 Dose: Not Given Docusate Sodium (Docusate Sodium 100 Mg Capsule) 100 mg PO BID [facility] Last Admin: 05/16/22 21:37 Dose: Not Given Gabapentin (Gabapentin 300 Mg Capsule) 600 mg PO BID [facility] Last Admin: 05/16/22 21:36 Dose: 600 mg Hydromorphone HCl (Hydromorphone Hcl 0.5 Mg/0.5 Ml Syringe) 0.25 mg IVPUSH Q4H PRN; Protocol PRN Reason: Pain, Severe (Pain Scale 7-10) Last Admin: 05/17/22 02:14 Dose: 0.25 mg Lactated Ringer's (Lr) 1,000 mls @ 100 mls/hr IVCONT .Q10H [facility] Last Admin: 05/17/22 06:10 Dose: Not Given Magnesium Oxide (Magnesium Oxide 400 Mg Tablet) 400 mg PO DAILY [facility] Ondansetron HCl (Ondansetron Hcl 4 Mg/2 Ml Vial) 4 mg IVPUSH Q8H PRN PRN Reason: Nausea and Vomiting Oxycodone HCl (Oxycodone Hcl Immed Release 5 Mg Tablet) 5 mg PO Q4H PRN PRN Reason: Pain, Moderate (Pain Scale 4-6 Last Admin: 05/17/22 05:18 Dose: 5 mg Oxycodone HCl (Oxycodone Hcl Er 10 Mg Tab.Er.12h) 10 mg PO BID [facility] Last Admin: 05/16/22 22:24 Dose: Not Given Sodium Chloride (0.9 % Sodium Chloride Flush 3 Ml Syringe) 3 ml IVFLUSH QSHIFT [facility] Last Admin: 05/17/22 01:02 Dose: Not Given Home Medications Medication Instructions Recorded Confirmed Last Taken Type gabapentin 300 mg capsule 2 cap PO BID 06/23/20 05/01/22 05/16/22 History pravastatin 20 mg tablet 1 tab PO BEDTIME 05/01/22 05/01/22 05/15/22 History calcium carbonate 600 mg calcium 600 mg PO DAILY 05/02/22 05/16/22 05/15/22 History (1,500 mg) tablet (Calcium) docusate sodium 100 mg capsule 100 mg PO BID 05/02/22 05/02/22 05/15/22 History (Stool Softener) magnesium oxide 500 mg capsule 500 mg PO DAILY 05/02/22 05/02/22 05/15/22 History multivitamin 1 tab PO DAILY 05/02/22 05/02/22 05/15/22 History tramadol 50 mg tablet 50 mg PO BID PRN Pain 05/02/22 05/02/22 05/15/22 History ropinirole 2 mg tablet 1 tab PO BEDTIME 05/16/22 05/16/22 Unknown History Physical Exam Vital Signs and Narrative: Vital Signs: Last Vital Signs Temp 97.7 F 05/17/22 04:00 Pulse 68 05/17/22 04:00 Resp 17 05/17/22 04:00 BP 108/54 L 05/17/22 04:00 Pulse Ox 94 05/17/22 04:00 O2 Del Method 05/17/22 04:00 O2 Flow Rate 1 05/16/22 12:27 BMI result Body Mass Index 28.5 Const: Other: patient appears comfortable, no acute distress, General: cooperative and no acute distress Eyes: General: appearance normal, both eyes and all related structures Resp: Effort & Inspection: normal respiratory effort Auscultation: clear to auscultation bilaterally Cardio: Rate: regular rate Rhythm: regular rhythm GI: Palpation (GI): Soft to palpation Auscultation: normal bowel sounds Skin: General skin exam: no rashes or lesions noted Neuro: Cognition (Neuro): normal cognition Extrem: Other: left hip in dressing appears clean General: Yes no pedal edema Results Labs CBC and Chem 7: 05/17/22 05:35 05/17/22 05:35 Labs: Laboratory Results - last 24 hr 05/16/22 05/17/22 05/17/22 06:10 05:35 05:35 MCV 99.7 H MCH 32.6 MCHC 32.8 RDW 14.0 Plt Count 137 L D MPV 9.8 Immature Gran % (Auto) 0.3 Neut % (Auto) 63.1 Lymph % (Auto) 24.3 [place] % (Auto) 11.6 H Eos % (Auto) 0.6 Baso % (Auto) 0.1 Lymph # (Auto) 1.7 [place] # (Auto) 0.8 Eos # (Auto) 0.0 Baso # (Auto) 0.0 Abs Immat Gran (auto) 0.02 Absolute Neuts (auto) 4.3 Absolute Nucleated RBC 0.000 Nucleated RBC % (auto) 0.0 Anion Gap 10 L Estim Creat Clear Calc 80.1 Estimated GFR > 60 Fasting Glucose 108 H Calcium 8.2 L D COVID-19 (ESHA) Negative COVID-19 Clin Com See Note Imaging Radiologist's Impressions: Impressions Pelvis X-Ray 05/16/22 10:09 IMPRESSION: Satisfactory appearance of left hip replacement. Assessment and Plan (1) Osteoarthritis of left hip: Status: Acute (2) Status post left hip replacement: Status: Acute Plan 76-year-old female with past medical history for osteoarthritis, presents the hospital for elective left hip replacement we are asked see this patient medical management # chronic pain - continue gabapentin and tramadol # hyperlipidemia - continue statin # status post left hip replacement - management per Orthopedics thank you for this consult, given the hypotension will follow along with you on this patient.
[2022-05-17 07:36] VITALS: BP 116/56; PULSE 78; RESP 18; TEMP 36.8; O2SAT 96
--- NOTE | 2022-05-17 08:17 | P.PNOP_ITS ---
Subjective Subjective Date of Service: 05/17/22 Interval history: POD 1 s/p LT KIANA No overnight events She is resting comfortably in bed, mild discomfort Denies sob, palpitations, chest pain Physical Exam Vital Signs: Vital Signs: Last Vital Signs Temp 98.2 F 05/17/22 07:36 Pulse 78 05/17/22 07:36 Resp 18 05/17/22 07:36 BP 116/56 L 05/17/22 07:36 Pulse Ox 96 05/17/22 07:36 O2 Del Method 05/17/22 07:36 O2 Flow Rate 1 05/16/22 12:27 BMI result Body Mass Index 28.5 Const: General: cooperative, healthy appearing and no acute distress Resp: Effort & Inspection: normal respiratory effort and able to speak in complete sentences Cardio: Rate: regular rate Peripheral pulses: Peripheral pulses 2+ throughout GI: Palpation (GI): Soft to palpation Skin: General skin exam: no rashes or lesions noted Extrem: Other: incision clean dry and intact. [place] intact. No erythema or effusion. Calf supple nontender. Neurovascularly intact. Procedures Date of Service Date of Service: 05/17/22 Progress Note: A&P Assessment and plan (1) Status post left hip replacement: Status: Acute Assessment and Plan: * Continue pain mgmnt * Begin Aspirin for dvt ppx * begin PT for LT KIANA * Dispo planning-Pending PT eval, pain mgmnt Time Spent With Patient Time: Total time spent is greater than 50% in coordination of care (as documented) at patient's floor/unit and/or counseling patient: Quality Stroke Does the patient have a stroke diagnosis?: No VTE Prior VTE?: No VTE Risk Level:: Surgical - high VTE Device Contraindication: N/A - Device Ordered VTE Drug Contraindication: N/A - Med Ordered
[2022-05-17] MEDS: HYDROmorphone HCl 1 MG/ML SYRINGE IVPUSH (09:00)
[2022-05-17] MEDS: oxyCODONE HCl ER 10 MG TAB.ER.12H PO (09:04)
[2022-05-17] MEDS: Docusate Sodium 100 MG CAPSULE PO (09:05)
[2022-05-17] MEDS: 0.9 % Sodium Chloride Flush 3 ML SYRINGE IVFLUSH (09:05)
[2022-05-17] MEDS: Aspirin 325 MG TABLET PO (09:05)
[2022-05-17] MEDS: Gabapentin 300 MG CAPSULE 600 MG PO (09:05)
[2022-05-17] MEDS: Magnesium Oxide 400 MG TABLET PO (09:05)
[2022-05-17] MEDS: Lactated Ringers 1,000 ML 100 ML IVCONT (09:05)
[2022-05-17 09:25] VITALS: BP 116/56; PULSE 78; O2SAT 96
--- NOTE | 2022-05-17 10:18 | MHC.CM.PN ---
PATIENT LIVES WITH HCP/SPOUSE (BROUGHT IN AND IN CHART) SHE IS INDEPENDENT WITH ALL ADLS. HAS A WALKER IN THE HOME. COVID VACCINATED X 4 SHE DID HAVE COVID-19 ABOUT 3-4 MONTHS AGO. PATIENT AWARE OF NEED FOR HOME PT AND OT. WITH PERMISSION, REFERRAL PLACED TO [facility] FOR SERVICES. IMM 05/17 IN CHART
--- NOTE | 2022-05-17 10:39 | HO.POSTANES ---
Post Anesthesia Evaluation Post Anesthesia Evaluation Vital Signs: Vital Signs Temp Pulse Resp BP Pulse Ox O2 Del Method 05/17/22 09:25 78 116/56 L 96 05/17/22 07:36 98.2 F 78 18 116/56 L 96 Room Air 05/17/22 04:00 97.7 F 68 17 108/54 L 94 Room Air 05/16/22 23:59 98.1 F 79 17 104/50 L 97 Room Air Anesthesia: General Mental Status: Awake Pain Control: Satisfactory (mild pain) Nausea/Vomiting: None Hydration: Adequate Anesthesia-Related Issues: No Anes. Related Issues
[2022-05-17 11:21] VITALS: BP 105/54; PULSE 80; RESP 18; TEMP 36.2; O2SAT 96
[2022-05-17 13:22] VITALS: BP 105/54; PULSE 80; O2SAT 96
--- NOTE | 2022-05-17 13:22 | P.DS_ITS ---
DS: Providers Provider Date of Service: 05/17/22 Date of admission: 05/16/22 05:52 Primary care physician: Rick Paulino MD Consults: 05/16/22 16:46 Consult to Hospitalist Routine Consulting Provider: Hospitalist Reason For Exam: medical management DS: Diagnosis Discharge Diagnosis (1) Status post left hip replacement: Status: Acute DS: Summary Hospital Course Hospital Course: The patient underwent a successful left total hip arthroplasty, was transferred to PACU and then to the floor to recover. During their stay, their vitals were stable, afebrile at 97.2. Labs were unremarkable, H/H 9.5/29.0 . POD 1 she was started on ASA for DVT ppx, they also received PT/OT services twice a day. Prior to discharge, their dressing was change, incision clean dry and intact, new Aquacel dressing applied and the plan was to be discharged home with vna svs. Time Spent with Patient Time attestation: Total time spent providing and/or coordinating discharge services: Discharge coordination time: Less than 30 minutes Quality: Safe Use of Opioids Does Pt have an Active Cancer Diagnosis on the Problem List?: No Quality: Stroke Does the patient have a stroke diagnosis?: No Physical Exam Vital Signs: Vital Signs: Last Vital Signs Temp 97.2 F 05/17/22 11:21 Pulse 80 05/17/22 11:21 Resp 18 05/17/22 11:21 BP 105/54 L 05/17/22 11:21 Pulse Ox 96 05/17/22 11:21 O2 Del Method 05/17/22 11:21 O2 Flow Rate 1 05/16/22 12:27 BMI result Body Mass Index 28.5 Const: General: cooperative, healthy appearing and no acute distress Resp: Effort & Inspection: normal respiratory effort and able to speak in complete sentences Cardio: Rate: regular rate Peripheral pulses: Peripheral pulses 2+ throughout GI: Palpation (GI): Soft to palpation Skin: General skin exam: no rashes or lesions noted Extrem: Other: incision clean dry and intact. [place] intact. No erythema or effusion. Calf supple nontender. Neurovascularly intact. DS: Data Data Completed and Pending Pending studies at discharge: Pending at discharge 05/16/22 09:07 Surgical [PTH] Routine Labs on day of discharge: Laboratory Results - last 24 hr 05/17/22 05/17/22 05:35 05:35 WBC 6.8 RBC 2.91 L D Hgb 9.5 L D Hct 29.0 L D MCV 99.7 H MCH 32.6 MCHC 32.8 RDW 14.0 Plt Count 137 L D MPV 9.8 Immature Gran % (Auto) 0.3 Neut % (Auto) 63.1 Lymph % (Auto) 24.3 [place] % (Auto) 11.6 H Eos % (Auto) 0.6 Baso % (Auto) 0.1 Lymph # (Auto) 1.7 [place] # (Auto) 0.8 Eos # (Auto) 0.0 Baso # (Auto) 0.0 Abs Immat Gran (auto) 0.02 Absolute Neuts (auto) 4.3 Absolute Nucleated RBC 0.000 Nucleated RBC % (auto) 0.0 Sodium 139 Potassium 4.5 Chloride 106 Carbon Dioxide 28 Anion Gap 10 L BUN 16 Creatinine 0.67 Estim Creat Clear Calc 80.1 Estimated GFR > 60 Fasting Glucose 108 H Calcium 8.2 L D Discharge Plan Discharge Patient Disposition: Home Health Service Discharge Diagnosis: s/p LT KIANA Referrals: Sapna Charles PA-C [Physician Medical Screener] - 2 Weeks (06/01/22 2:00 [facility] [place] [facility] Sapna Charles PA-C) Discharge Medications: New acetaminophen 325 mg Tablet 650 mg PO Q6H PRN (Reason: Pain, Mild (Pain Scale 1-3)) 30 Days Qty: 240 0RF aspirin 325 mg Tablet 325 mg PO BID 42 Days Qty: 84 0RF oxycodone 5 mg Tablet 5 mg PO Q4H PRN (Reason: Pain, Moderate (Pain Scale 4-6) 7 Days Qty: 42 0RF Rx Instructions: Partial Fill upon patient request. Continued gabapentin 300 mg capsule 2 cap PO BID pravastatin 20 mg tablet 1 tab PO BEDTIME multivitamin Tablet 1 tab PO DAILY calcium carbonate [Calcium 600] 600 mg calcium (1,500 mg) Tablet 600 mg PO DAILY docusate sodium [Stool Softener] 100 mg Capsule 100 mg PO BID magnesium oxide 500 mg Capsule 500 mg PO DAILY ropinirole 2 mg tablet 1 tab PO BEDTIME Discontinued tramadol 50 mg Tablet 50 mg PO BID PRN (Reason: Pain) Discharge Orders: Discharge Order (Routine); Ordered 05/17/22 Ordered By: Sapna Charles Diet: Regular diet Activity on Discharge: Use cane or walker Stand Alone Forms: Patient Portal Discharge page Care Plan Goals: Restore function of joint Health Concerns: none Plan of Treatment: Physical Therapy Pain management DVT prophylaxis Assessment: * Physical Therapy for Total hip arthroplasty: wbat, posterior precautions, gait training, ROM, strength * Limit stair climbing * No showering, no tub bath-keep dressing clean, dry and intact * No driving x6 weeks * Continue Aspirin twice a day x 6 weeks * Follow up with [facility] [place] [facility] in 2 weeks: * --you will also have your first out patient PT eval on the day of your post op appt-so please plan on being in the office that day for an extended period of time.
--- NOTE | 2022-05-17 13:44 | P.F2F_ITS ---
Service Date Service Date: 05/17/22 Encounter Date of encounter: 05/17/22 Reasons for Services Signs and symptoms assessed: left hip pain, weakness, unsteady gait Reason for physical therapy: home safety and mobility, therapeutic exercises, restore joint function, gait/transfer training, ADL training and energy conservation Reason for occupational therapy: home safety and mobility, therapeutic exercises, restore joint function, gait/transfer training, ADL training and energy conservation Overseeing Care: All Bhat Homebound: Leaving the home is medically contraindicated at this time without the asist of a device and/or another person due th the listed conditions above and below. Reason homebound: unsteady gait / fall risk, pain with ambulation, poor balance / fall risk and unable to drive Homebound supporting statement: Pt. is considered home bound due to recent surgery. Unable to drive, poor balance, poor gait mechanics. Certification: Based on the above findings, I certify that this patient is confined to the home and needs intermittent [facility] care, physical therapy and/or speech therapy, or continues to need occupational therapy. The patient is under my care, and I have initiated the establishment of the plan of care. The patient will be followed by a physician who will periodically review the plan of care.
--- NOTE | 2022-05-17 14:02 | MHC.CM.PN ---
HOME TODAY WITH [facility].
[2022-05-17 15:02] VITALS: BP 106/46; PULSE 88; RESP 16; TEMP 36.8; O2SAT 97
== END 2022-05-17 16:24 | disposition home health service (06) | DRG 470 ==
LOC: HO.SSSA 05:53 → HO.S3 15:41
PROVIDERS: Physician Assistant; Admitting Provider Orthopaedic Surgery; PCP Internal Medicine; Visit Provider Orthopaedic Surgery
PROC: 0SRB03A Replacement of Left Hip Joint with Ceramic Synthetic Substitute, Uncemented, Open Approach (ICD-10-PCS; CPT 27130; principal; 2022-05-16 07:30)
DX: M16.12 Unilateral primary osteoarthritis, left hip (principal); F10.21 Alcohol dependence, in remission; G89.29 Other chronic pain; E78.5 Hyperlipidemia, unspecified; G25.81 Restless legs syndrome; Z20.822 Contact with and (suspected) exposure to COVID-19; Z88.5 Allergy status to narcotic agent; Z79.899 Other long term (current) drug therapy
CPT/HCPCS: 27130; 36415; 72170; 80048; 85025; 86850; 86900; 86901; 87635; 87640; 87641; 88304; 88311; 93005; 97110; 97116; 97162; 97530; C1776; J0131; J0690; J1100; J1170; J2250; J2370; J2405; J2795; J3010

== ENCOUNTER → 2022-06-01 13:45 | Outpatient (BNVA) | payer MEDICARE, SELFPAY | PROVIDERS: PCP Internal Medicine; Visit Provider Physician Assistant | DX: Z47.1 Aftercare following joint replacement surgery (principal); Z96.642 Presence of left artificial hip joint | CPT/HCPCS: 99212 ==

== ENCOUNTER → 2022-06-29 13:42 | Outpatient (BNVA) | payer MEDICARE, SELFPAY | PROVIDERS: PCP Internal Medicine; Visit Provider Orthopaedic Surgery | DX: Z47.1 Aftercare following joint replacement surgery (principal); Z96.642 Presence of left artificial hip joint | CPT/HCPCS: 99212 ==

== ENCOUNTER 2022-07-13 09:00 | Outpatient (RCR) | payer MEDICARE, SELFPAY ==
--- NOTE | 2022-06-01 14:50 | MHC.PT.EP ---
[facility] [place] Office [place] Office [place] Office [address] Jah Arenas [address] [phone] F: [phone] F: [phone] F: [phone] F: [phone] Physical Therapy Plan of Care Date of Evaluation: Date of Surgery: 05/16/22 Diagnosis: S/P LEFT KIANA Assessment: 76 YO FEMALE REF TO PT S/P LEFT KIANA ON 05/16/22. SHE RESIDES W HER SPOUSE AND DOG IN A 1 LEVEL HOME AND IS CURRENTLY AMB W A W/WALKER- SHE RECENTLY TRIALED CANE W HOME PT. OBJECTIVE FINDINGS: PO ROM DEFICITS LEFT HIP, TIGHT HIP FLEXORS/ CALF MM, (+) STRENGTH DEFICITS, AND MILD LEFT PROX LE SORENESS. Pt BENEFITTED FROM REVIEW OF CURRENT POST-OP ACTIVITY RESTRICTIONS- PRE-OPERATIVELY SHE WAS VERY ACTIVE. SHE IS KNOWLEDGEABLE WITH KIANA RESTRICTIONS/ PRECAUTIONS. FUNCTIONALLY, Pt IS CURRENTLY LIMITED WITH MILD DIFFIC W BED MOB, DECR STANDING, ALTERED GAIT MECHANICS, SHE IS NOT CLEARED TO DRIVE, STAIR MGMT, AND RESTRICTED WITH MORE PHYSICALLY DEMANDING ADLs. SHE IS MOTIVATED FOR PT AND WOULD BENEFIT FROM PT AT THIS TIME TO GUIDE HER IN HER POST-OP COURSE, DEV A PROGR HEP, ADDRESS PAIN MGMT, AND OBTAINING MAXIMAL LEVEL OF FUNCTIONAL INDEPENDENCE. Frequency and Duration: The patient will be seen 2 x WK x 10 WKS Short Term Goals: *Pt DEMON EFFICIENT GAIT ON LEVEL AND STAIRS W CANE-> W/O AD *Pt DEMON IMPROVED TRANSFERS AND BED MOB *REINFORCE ACTIVITY / PRECAUTIONS IN HER IMMED POST-OP COURSE *Pt'S Lt HIP PAIN REMAIN DECR AT 1-2/10 W ADLs *IMPROVE CALF/ PSOAS MM FLEXIB Assisted Goals: Pt INDEP W HEP PROGRESSION AND SELF-SX MGMT STRATEGIES IN 10 WKS Pt RESUME REG ADLs EVIDENT W IMPROVED LEFI SCORE BY 8-10 POINTS (AT EVAL 42/80 ) IN 10 WKS Pt INCR LE STRENGTH BY 1 GRADE IN 10 WKS Treatment Plan: Modalities to reduce pain, spasms and effusion. Manual therapy to restore motion and function. Therapeutic exercise to improve strength and flexibility. Neuromuscular re-education for posture and balance. Therapeutic activities to return to functional activities of daily living. Electronically signed by: SHALINI MANDUJANO PT Please sign and return to therapist. Thank you for your referral.
--- NOTE | 2022-09-06 08:28 | MHC.PT.DC ---
[facility] [place] Office [place] Office [place] Office [address] Jah Arenas [address] [phone] F: [phone] F: [phone] F: [phone] F: [phone] Physical Therapy Discharge Report Diagnosis: S/P LEFT KIANA Date of Surgery: 05/16/22 Date of Evaluation: 06/01/22 Date of Discharge: 09/06/22 Treatments to Date: 10 Cancellations to Date: No Shows to Date: Discharge Status: Improved Function Independent with HEP Discharge Summary: 07/13/22: Pt did very well over the course of skilled PT. She was motivated and compliant throughout. She improved significantly on impairments and functional limitations. She is appropriate to d/c to HEP at this time. 07/04/22: educated in techniques to manage back pain and what to do until feeling better. no adverse reactions from above. resume NV. 06/28/22: pt re-educated about precautions. she does have a follow up tomorrow per her report. we will continue to progress as tolerated. Stairs continue to improve. excellent activity tolerance. 06/26/22: pt has been feeling good overall with good strength. no need for AD anymore. good symmetry with gait pattern. still requires progress with functional hip strength related to stairs. 06/21; Pt challenged with squats and balance exs. Pt fatigued after lunges. Pt reported no increase in pain after exs. 06/19/22: we held on progression as a result of back pain from falling asleep in a recliner. we will attempt to progress Nv. 06/14/22: pt progressed again with ankle weights, wobble board, stepper time, and stair time. continue to progress as tolerated. pt has been using cane less. 06/12/22: pt progressed with stair activities. no adverse reactions. we did review her precautions as I sensed a little defiance related to them. 06/07/22: progressed well today with focus on balance, stairs. edu on stair mechanics in therapy. educated to try on OSCAR with 1 HH assist at home. 76 YO FEMALE REF TO PT S/P LEFT KIANA ON 05/16/22. SHE RESIDES W HER SPOUSE AND DOG IN A 1 LEVEL HOME AND IS CURRENTLY AMB W A W/WALKER- SHE RECENTLY TRIALED CANE W HOME PT. OBJECTIVE FINDINGS: PO ROM DEFICITS LEFT HIP, TIGHT HIP FLEXORS/ CALF MM, (+) STRENGTH DEFICITS, AND MILD LEFT PROX LE SORENESS. Pt BENEFITTED FROM REVIEW OF CURRENT POST-OP ACTIVITY RESTRICIONS- PRE-OPERATIVELY SHE WAS VERY ACTIVE. SHE IS KNOWLEDGEABLE WITH KIANA RESTRICTIONS/ PRECAUTIONS. FUNCTIONALLY, Pt IS CURRENTLY LIMITED WITH MILD DIFFIC W BED MOB, DECR STANDING, ALTERED GAIT MECHANICS, SHE IS NOT CLEARED TO DRIVE, STAIR MGMT, AND RESTRICTED WITH MORE PHYSICALLY DEMANDING ADLs. SHE IS MOTIVATED FOR PT AND WOULD BENEFIT FROM PT AT THIS TIME TO GUIDE HER IN HER POST-OP COURSE, DEV A PROGR HEP, ADDRESS PAIN MGMT, AND OBTAINING MAXIMAL LEVEL OF FUNCTIONAL INDEPENDENCE. Electronically signed by: Ramsey Abel, PT Please sign and return to therapist. Thank you for your referral.
== END 2022-09-06 08:28 | disposition home or self-care (01) ==
LOC: HO.PTCHIC 09:00
PROVIDERS: Visit Provider Physician Assistant
DX: Z96.642 Presence of left artificial hip joint (principal)
CPT/HCPCS: 97110; 97112; 97162

== ENCOUNTER 2022-08-10 11:36 | Outpatient (REF) | payer MEDICARE, SELFPAY ==
--- NOTE | ~2022-08-10 | XR_ITS ---
EXAMINATION: XR PELVIS CLINICAL INFORMATION: Pain COMPARISON: Previous x-ray April 2022 TECHNIQUE: AP view of the pelvis. FINDINGS: There is a left hip replacement in satisfactory position. No fracture or dislocation. There is arthritis at the right hip joint. Bones of the pelvis are unremarkable. There are degenerative changes of the visualized lower lumbar spine. Soft tissues are normal. XR/XR pelvis 1-2V IMPRESSION: Satisfactory appearance of left hip replacement.
== END 2022-08-10 11:37 | disposition home or self-care (01) ==
LOC: HO.HOSX 11:36
PROVIDERS: Visit Provider Orthopaedic Surgery
DX: M25.551 Pain in right hip (principal); M25.552 Pain in left hip
CPT/HCPCS: 72170; 99212

== ENCOUNTER → 2022-08-10 12:02 | Outpatient (BNVA) | payer MEDICARE, SELFPAY | PROVIDERS: PCP Internal Medicine; Visit Provider Orthopaedic Surgery | DX: Z47.1 Aftercare following joint replacement surgery (principal); Z96.642 Presence of left artificial hip joint | CPT/HCPCS: 99212 ==

== ENCOUNTER 2023-01-17 12:10 | Outpatient (REF) | payer MEDICARE, SELFPAY ==
[2023-01-17 13:38] LABS: MANUAL DIFF FLAG NO
[2023-01-17 13:45] LABS: Basophils Percent Auto 0.7 % (0-2); Eosinophils Absolute Auto 0.1 X10*3/uL (0.0-0.4); Eosinophils Percent Auto 2.1 % (0-4); Hematocrit 38.8 % (37.0-47.0); Hemoglobin 12.6 g/dl (12.0-16.0); Imm Gran Abs Auto 0.01 X10*3/uL (0.00-0.03); Imm Gran Pct Auto 0.2 % (0.0-0.4); Lymphocytes Absolute Auto 1.8 X10*3/uL (1.2-4.9); Lymphocytes Percent Auto 41.9 % (20-40); Mean Corpuscular HGB Conc 32.5 g/dl (31.0-35.0); Mean Corpuscular Hemoglobin 31.7 pg (27.0-33.0); Mean Corpuscular Volume 97.5 fL (80.0-98.0); Mean Platelet Volume 10.4 fL (9.4-12.3); Monocytes Absolute Auto 0.3 X10*3/uL (0.1-1.2); Monocytes Percent Auto 7.2 % (2-11); Neutrophils Absolute Auto 2.1 x10*3/uL (2.0-8.3); Neutrophils Percent Auto 47.9 % (45-73); Platelet Count 192 X10*3/uL (160-400); Red Blood Count 3.98 X10*6/uL (4.20-5.50); Red Cell Distribution Width 13.9 % (11.0-16.0); White Blood Count 4.3 X10*3/uL (4.8-10.8)
[2023-01-17 13:57] LABS: Alanine Aminotransferase 15 U/L (0-31); Albumin Level 3.8 g/dL (3.5-5.0); Alkaline Phosphatase 51 U/L (39-117); Anion Gap 9 (12-20); Aspartate Amino Transferase 17 U/L (5-31); Bilirubin Total 0.4 mg/dL (0.0-1.0); Blood Urea Nitrogen 17 mg/dL (9-16); Calcium 8.9 mg/dL (8.4-10.2); Carbon Dioxide 26 mmol/L (22-29); Chloride 110 mmol/L (96-108); Cholesterol 220 mg/dL; Estimated Glomerular Filt Rate > 60; Glucose Fasting 95 mg/dL (60-99); HDL Cholesterol 67 mg/dL; LDL Cholesterol Calculated 143 mg/dl; Potassium 4.4 mmol/L (3.3-5.1); Sodium 141 mmol/L (135-145); Triglycerides 53 mg/dL
[2023-01-19 09:04] LABS: Lyme Abs Screen <0.90 index
== END 2023-01-17 12:11 | disposition home or self-care (01) ==
LOC: HO.10HDL 12:10
PROVIDERS: Visit Provider Internal Medicine
DX: E78.00 Pure hypercholesterolemia, unspecified (principal); R21 Rash and other nonspecific skin eruption
CPT/HCPCS: 36415; 80053; 80061; 85025; 86617; 86618

== ENCOUNTER 2023-06-29 10:52 | Outpatient (REF) | payer MEDICARE, SELFPAY | END 2023-06-29 10:53 | disposition home or self-care (01) | LOC: HO.HMGCLDS 10:52 | PROVIDERS: PCP Internal Medicine; Visit Provider Internal Medicine | DX: R60.0 Localized edema (principal) | CPT/HCPCS: 36415; 80053; 82550; 83880; 84439; 84443; 85025; 86140 ==

== ENCOUNTER 2025-02-05 12:58 | Outpatient (AMB) | payer MEDICARE, SELFPAY ==
--- NOTE | 2025-02-05 13:10 | MHC.PC.OV ---
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 Accompanied by: Self / Same As Patient Allergies hydrocodone [From VICODIN] Allergy (Unknown, Verified 02/05/25 13:10) Nausea and Vomiting fentanyl Allergy (Verified 02/05/25 13:10) Nausea and Vomiting Tobacco use date assessed: 02/05/25 Fall risk assessment: No Falls in past year Last assessed Fall Risk: 02/05/25 Dental Screening Dental Screen Date: 02/05/25 Did you have a dental visit in the last 12 months?: Yes Did you have a dental problem in the last 6 months where you did not have access to dental care?: No Was dental information given to patient?: Patient has dentist HPI HPI Comments History of Present Illness Details The patient is a 78 year old female with a past medical history of hyperlipidemia, RLS, lyme disease, diverticulosis, left hip pain presenting for follow up. Last seen by PCP in September. CV: on pravastatin. Due for labs RLS: on propranolol, ropinorale MSK: History of left hip replacement[place] [place]. On gabapentin Despite decreasing calories, carbs and exercising daily patient has been unable to lose weight. Her current BMI is 31.6 Colonoscopy 2014 recommend 5 year repeat. She says she repeated and it likely didnt need to be repeated Mammo: [facility]. Does not want any further ROS CONSTITUTIONAL: Denies weight loss, fever and chills. HEENT: Denies changes in vision and hearing. RESPIRATORY: Denies SOB and cough. CV: Denies palpitations and CP GI: Denies abdominal pain, nausea, vomiting and diarrhea. : Denies dysuria and urinary frequency. MSK: Denies new myalgia and joint pain. SKIN: Denies rash and pruritus. NEUROLOGICAL: Denies headache PSYCHIATRIC: Denies recent changes in mood. PHYSICAL EXAM: GENERAL: Alert and oriented x 3. NAD EYES: EOMI. Anicteric. HENT: Moist mucous membranes. No scleral icterus. No cervical lymphadenopathy. LUNGS: Clear to auscultation bilaterally. CARDIOVASCULAR: Regular rate and rhythm. No murmur. No JVD. ABDOMEN: Soft, non-tender +bs EXTREMITIES: No edema. Non-tender. SKIN: No rashes or lesions. Warm. NEUROLOGIC: No focal neurological deficits. CN II-XII grossly intact PSYCHIATRIC: Cooperative. Appropriate mood and affect [facility] Medical History Osteoarthritis of left hip Osteoarthritis Hx of skin cancer, basal cell Recovering alcoholic Restless leg syndrome Hyperlipemia Surgical History Hx of cholecystectomy Hx of colonoscopy Family History Other No family history of coronary artery disease Social History Household Members: Spouse Housing: House Are you a primary healthcare management consultant to a significant other at home: No Do you presently have visiting nurse or other home services: No Alcohol intake: current Alcohol intake frequency: does not drink Patient Tobacco Use Status: Former Tobacco user Tobacco use type: Cigarette Second Hand Smoke Exposure: No service: No Current occupational status: retired Cognitive needs: No Hearing needs: No Vision needs: Yes (rx glasses) Questionnaire PHQ-9 Over the last 2 weeks, how often have you been bothered by any of the following problems? 1. Little interest or pleasure in doing things: not at all 2. Feeling down, depressed, or hopeless: not at all 3. Trouble falling or staying asleep, or sleeping too much: not at all 4. Feeling tired or having little energy: not at all 5. Poor appetite or overeating: not at all 6. Feeling bad about yourself - or that you are a failure or have let yourself or your family down: not at all 7. Trouble concentrating on things, such as reading the newspaper or watching television: not at all 8. Moving or speaking so slowly that other people could have noticed. Or the opposite - being so fidgety or restless that you have been moving around a lot more than usual: not at all 9. Thoughts that you would be better off or of hurting yourself in some way: not at all Total score: 0 Depression Screening Interpretation: Negative Depression Screening Done: Yes 38169 - PHQ-9 Billing: Yes Source: Developed by Drs. Home Morel, Сергей Reyes and colleagues, with an educational nidia from [employer]. Thrive Questionnaire Date Thrive assessed: 02/05/25 I am a: Patient What is your living situation today?: I have a steady place to live Within the past 12 months, did the food you bought not last and you didn't have the money to get more?: Never true Within the past 12 months, did you worry whether your food would run out before you got money to buy more?: Never true Do you have trouble paying for medicines?: No Do you have trouble getting transportation to medical appointments?: No Do you have trouble paying your heating and electricity bill?: No Do you have trouble taking care of your child, family member or friend?: No Do you have trouble with day-to-day activities such as bathing, preparing meals, shopping, managing finances, etc.?: No Are you currently unemployed and looking for a job?: No Are you interested in more education?: No Please select the resources that you would like help with: None THRIVE Score: 0 AUDIT C Alcohol Use Questionnaire (AUDIT-C) 1. How often do you have a drink containing alcohol?: Never 3. How often do you have six or more drinks on one occasion?: Never Total Score: 0 KEMAR-7 AMB Questionnaire KEMAR-7 Date KEMAR - 7 assessed: 02/05/25 Feeling nervous, anxious, or on edge: 0 = Not at all Not being able to stop or control worryin = Not at all Worrying too much about different things: 0 = Not at all Trouble relaxin = Not at all Being so restless that it is hard to sit still: 0 = Not at all Becoming easily annoyed or irritable: 0 = Not at all Feeling afraid as if something awful might happen: 0 = Not at all Total KEMAR-7 score (0-4 normal; 5-9 mild; 10-14 moderate; 15-21 severe): 0 Source: Developed by Drs. Home Morel, Сергей Reyes and colleagues, with an educational nidia from [employer]. Physical exam (Primary Care) Vital Signs: Last Vital Signs Temp 97.4 F 02/05/25 13:21 Pulse 77 02/05/25 13:21 Resp 14 02/05/25 13:21 BP 144/62 H 02/05/25 13:21 Pulse Ox 97 02/05/25 13:21 Oxygen Delivery Method Room Air 02/05/25 13:21 BMI result Body Mass Index 31.6 Tobacco/Smoking Status: Tobacco use Status Tobacco use date assessed 02/05/25 02/05/25 13:11 Patient Tobacco Use Status Former Tobacco user 02/05/25 13:27 Tobacco use type Cigarette 02/05/25 13:27 PHQ-9: PHQ-9 Score PHQ-9: Total score 0 02/05/25 13:20 Depression Screening Interpretation: Negative Thrive Assessment: Date of Thrive Assessment Date Thrive assessed 02/05/25 02/05/25 13:11 Coding Level of Care Code New Pt Level 4 (15379) Complex EM visit Add On G2211 Diagnoses Osteoarthritis of multiple joints, unspecified osteoarthritis type M15.9 Osteoarthritis location: multiple joints Osteoarthritis type: unspecified Restless leg syndrome G25.81 Hyperlipidemia, unspecified hyperlipidemia type E78.5 Hyperlipidemia type: unspecified Status post left hip replacement Z96.642 Obesity (BMI 30.0-34.9) E66.811 Additional Codes PHQ-9 - 17161 - PHQ-9 Billing: Yes ([id number]) Assessment & Plan Assessment & Plan (1) Osteoarthritis: Code(s): M19.90 - Unspecified osteoarthritis, unspecified site Category: Medical Qualifiers: Osteoarthritis location: multiple joints Osteoarthritis type: unspecified Qualified Code(s): M15.9 - Polyosteoarthritis, unspecified (2) Restless leg syndrome: Code(s): G25.81 - Restless legs syndrome Category: Medical (3) Hyperlipemia: Code(s): E78.5 - Hyperlipidemia, unspecified Category: Medical Qualifiers: Hyperlipidemia type: unspecified Qualified Code(s): E78.5 - Hyperlipidemia, unspecified (4) Status post left hip replacement: Code(s): Z96.642 - Presence of left artificial hip joint Category: Surgical (5) Obesity (BMI 30.0-34.9): Code(s): E66.811 - Obesity, class 1 Category: Medical Plan 79 year old female to establish care Past medical, surgical social reviewed Chronic medical conditions are stable. Obesity-failed diet and exercise labs ordered, overdue Orders: Orders Complete Blood Count Auto Diff Today E78.5 - Hyperlipidemia, unspecified, G25.81 - Restless legs syndrome, M19.90 - Unspecified osteoarthritis, unspecified site, Z13.228 - Encounter for screening for other metabolic disorders Comprehensive Met. Panel Today E78.5 - Hyperlipidemia, unspecified, G25.81 - Restless legs syndrome, M19.90 - Unspecified osteoarthritis, unspecified site, Z13.228 - Encounter for screening for other metabolic disorders Hemoglobin A1c Today E78.5 - Hyperlipidemia, unspecified, G25.81 - Restless legs syndrome, M19.90 - Unspecified osteoarthritis, unspecified site, Z13.228 - Encounter for screening for other metabolic disorders TSH reflex Free T4 Today E78.5 - Hyperlipidemia, unspecified, G25.81 - Restless legs syndrome, M19.90 - Unspecified osteoarthritis, unspecified site, Z13.228 - Encounter for screening for other metabolic disorders Lipid Panel Today E78.5 - Hyperlipidemia, unspecified, G25.81 - Restless legs syndrome, M19.90 - Unspecified osteoarthritis, unspecified site, Z13.228 - Encounter for screening for other metabolic disorders Medications: New Ozempic (semaglutide) for 4 weeks; then increase to 0.5 mg every week 0.25 mg (0.368 mL) subcut QWEEK 3 mL 3RF NS phentermine must administer 30 minutes before or 1-2 hours after breakfast Good RX [id number] [facility] [id number] Member [id number] 37.5 mg PO DAILY 30 caps 0RF
[2025-02-05 13:21] VITALS: BP 144/62; PULSE 77; RESP 14; TEMP 36.3; O2SAT 97; BMI 31.6
== END 2025-02-05 13:47 | disposition home or self-care (01) ==
LOC: HO.HMCHD 12:59
PROVIDERS: PCP Internal Medicine; Visit Provider Internal Medicine
DX: M15.9 Polyosteoarthritis, unspecified (principal); G25.81 Restless legs syndrome; E78.5 Hyperlipidemia, unspecified; Z96.642 Presence of left artificial hip joint; E66.811 Obesity, class 1

== ENCOUNTER → 2025-02-05 12:58 | Outpatient (BNVA) | payer MEDICARE, SELFPAY | PROVIDERS: PCP Internal Medicine; Visit Provider Internal Medicine | DX: E78.5 Hyperlipidemia, unspecified (principal); M15.9 Polyosteoarthritis, unspecified; G25.81 Restless legs syndrome; E66.811 Obesity, class 1; Z68.31 Body mass index [BMI] 31.0-31.9, adult; Z96.642 Presence of left artificial hip joint | CPT/HCPCS: 96127; 99202 ==

== ENCOUNTER 2025-02-18 06:05 | Outpatient (REF) | payer MEDICARE, SELFPAY ==
[2025-02-18 10:18] LABS: MANUAL DIFF FLAG NO
[2025-02-18 10:24] LABS: Basophils Percent Auto 0.6 % (0-2); Eosinophils Absolute Auto 0.1 X10*3/uL (0.0-0.4); Eosinophils Percent Auto 2.5 % (0-4); Hematocrit 42.4 % (37.0-47.0); Hemoglobin 13.8 g/dl (12.0-16.0); Imm Gran Abs Auto 0.01 X10*3/uL (0.00-0.03); Imm Gran Pct Auto 0.2 % (0.0-0.4); Lymphocytes Absolute Auto 2.3 X10*3/uL (1.2-4.9); Lymphocytes Percent Auto 47.7 % (20-40); Mean Corpuscular HGB Conc 32.5 g/dl (31.0-35.0); Mean Corpuscular Hemoglobin 30.7 pg (27.0-33.0); Mean Corpuscular Volume 94.2 fL (80.0-98.0); Mean Platelet Volume 10.2 fL (9.4-12.3); Monocytes Absolute Auto 0.4 X10*3/uL (0.1-1.2); Monocytes Percent Auto 7.5 % (2-11); Neutrophils Percent Auto 41.5 % (45-73); Platelet Count 196 X10*3/uL (160-400); Red Cell Distribution Width 14.1 % (11.0-16.0); White Blood Count 4.8 X10*3/uL (4.8-10.8)
[2025-02-18 10:36] LABS: Estimated Average Glucose 111 mg/dL; Hemoglobin A1C 134.6217 umol/L; Hemoglobin A1c % 5.5 % (<6.0); Total Hemoglobin (HGBA1C) 3691.4773 umol/L
[2025-02-18 10:42] LABS: Alanine Aminotransferase 19 U/L (0-31); Alkaline Phosphatase 53 U/L (39-117); Anion Gap 11 (12-20); Aspartate Amino Transferase 23 U/L (5-31); Bilirubin Total 0.4 mg/dL (0.0-1.0); Blood Urea Nitrogen 16 mg/dL (9-16); Calcium 9.3 mg/dL (8.4-10.2); Carbon Dioxide 26 mmol/L (22-29); Chloride 110 mmol/L (96-108); Cholesterol 174 mg/dL (<200); Estimated Glomerular Filt Rate > 60; Glucose Random 82 mg/dL (60-115); HDL Cholesterol 62 mg/dL (>40); LDL Cholesterol Calculated 94 mg/dL (<100); Potassium 4.1 mmol/L (3.3-5.1); Sodium 143 mmol/L (135-145); Total Protein 6.5 g/dL (6.5-8.0); Triglycerides 94 mg/dL (<150)
[2025-02-18 11:07] LABS: TSH reflex Free T4 1.41 uIU/mL (0.32-4.0)
== END 2025-02-18 06:06 | disposition home or self-care (01) ==
LOC: HO.HMGCLDS 06:05
PROVIDERS: PCP Internal Medicine; Visit Provider Internal Medicine
DX: E78.5 Hyperlipidemia, unspecified (principal); M19.90 Unspecified osteoarthritis, unspecified site; G25.81 Restless legs syndrome; Z13.228 Encounter for screening for other metabolic disorders; Z13.1 Encounter for screening for diabetes mellitus
CPT/HCPCS: 36415; 80053; 80061; 83036; 84443; 85025

== ENCOUNTER 2025-03-16 11:14 | Outpatient (REF) | payer MEDICARE, SELFPAY ==
--- NOTE | ~2025-03-16 | XR_ITS ---
EXAMINATION: XR CHEST CLINICAL INFORMATION: R05.9 - Cough, unspecified COMPARISON: None available. TECHNIQUE: 2 views of the chest were obtained. FINDINGS: The cardiac, hilar, and mediastinal contours are normal. The lungs are clear bilaterally. There is no pneumothorax or pleural effusion. There is no focal osseous or soft tissue abnormality. XR/XR chest 2V IMPRESSION: Normal chest. Electronically signed by: Sae Cheung MD 03/16/2025 12:42 PM EDT
--- NOTE | 2025-03-16 11:52 | ECG_ITS ---
Test Reason : SOB Blood Pressure : */* mmHG Vent. Rate : 65 BPM Atrial Rate : 65 BPM P-R Int : 168 ms QRS Dur : 86 ms QT Int : 402 ms P-R-T Axes : 72 -29 23 degrees QTcB Int : 418 ms Normal sinus rhythm Possible Left atrial enlargement Borderline ECG When compared with ECG of 12-Apr-2022 10:10, No significant change was found Referred By: Junior Patel Electronically Signed By: SWETHA MIKE
== END 2025-03-16 11:15 | disposition home or self-care (01) ==
LOC: HO.XRAY 11:14
PROVIDERS: PCP Internal Medicine; Visit Provider Internal Medicine
DX: R06.02 Shortness of breath (principal); R05.9 Cough, unspecified
CPT/HCPCS: 71046; 93005; 99202

== ENCOUNTER 2025-03-16 11:14 | Outpatient (AMB) | payer MEDICARE, SELFPAY ==
[2025-03-16 11:22] VITALS: BP 124/80; PULSE 74; TEMP 36.2; O2SAT 97; BMI 30.2
--- NOTE | 2025-03-16 11:22 | A.OFFPC_ITS ---
Vital Signs 03/16/25 11:22 Height 5 ft 7 in Weight 193 lb BMI 30.2 BP 124/80 Blood Pressure Location Lt brachial Position Sitting Pulse 74 Pulse Source Pulse Oximeter Temp 97.1 F Temp Source Axillary Pulse Oximetry (%) 97 Oxygen Delivery Method Room Air Intake Visit Reasons: Routine Real Estate Loan Officer Required: No Accompanied by: Self / Same As Patient Allergies hydrocodone (From VICODIN) Allergy (Unknown, Verified 03/31/25 19:19) Nausea and Vomiting fentanyl Allergy (Verified 03/31/25 19:19) Nausea and Vomiting Medication List - Last Reconciled 03/31/25 by Junior Patel MD acetaminophen 650 mg (2 x 325 mg) PO Q6H PRN 30 days gabapentin 2 caps PO BID multivitamin 1 tab PO DAILY Ozempic (semaglutide) 0.25 mg (0.368 mL) subcut QWEEK NS pravastatin 1 tab PO BEDTIME ropinirole 1 tab PO BEDTIME Tobacco use date assessed: 03/16/25 Fall risk assessment: No Falls in past year Last assessed Fall Risk: 03/16/25 Dental Screening Dental Screen Date: 03/16/25 Did you have a dental visit in the last 12 months?: Yes Did you have a dental problem in the last 6 months where you did not have access to dental care?: No PFSH Medical History Osteoarthritis of left hip Osteoarthritis Hx of skin cancer, basal cell Recovering alcoholic Restless leg syndrome Hyperlipemia Surgical History Hx of cholecystectomy Hx of colonoscopy Family History (Updated 03/16/25 @ 11:32 by Ginna Luna MA) Mother No problems noted. Father No problems noted. Other No family history of coronary artery disease Social History Household Members: Spouse Housing: House Are you a primary nurse behavioral health care to a significant other at home: No Do you presently have visiting nurse or other home services: No Alcohol intake: current Alcohol intake frequency: does not drink Patient Tobacco Use Status: Former Tobacco user Tobacco use type: Cigarette e-Cigarette/Vaping Use: Former Use Second Hand Smoke Exposure: No service: No Current occupational status: retired Cognitive needs: No Hearing needs: No Vision needs: Yes (rx glasses) Questionnaire PHQ-9 Over the last 2 weeks, how often have you been bothered by any of the following problems? 1. Little interest or pleasure in doing things: not at all 2. Feeling down, depressed, or hopeless: not at all 3. Trouble falling or staying asleep, or sleeping too much: not at all 4. Feeling tired or having little energy: not at all 5. Poor appetite or overeating: not at all 6. Feeling bad about yourself - or that you are a failure or have let yourself or your family down: not at all 7. Trouble concentrating on things, such as reading the newspaper or watching television: not at all 8. Moving or speaking so slowly that other people could have noticed. Or the opposite - being so fidgety or restless that you have been moving around a lot more than usual: not at all 9. Thoughts that you would be better off or of hurting yourself in some way: not at all Total score: 0 Source: Developed by Drs. Home Morel, Mary Nguyen, Сергей Gonzáles and colleagues, with an educational nidia from [employer]. Thrive Questionnaire Date Thrive assessed: 03/16/25 I am a: Patient Within the past 12 months, did the food you bought not last and you didn't have the money to get more?: Never true Within the past 12 months, did you worry whether your food would run out before you got money to buy more?: Never true Do you have trouble paying for medicines?: No Do you have trouble getting transportation to medical appointments?: No Do you have trouble paying your heating and electricity bill?: No Do you have trouble taking care of your child, family member or friend?: No Do you have trouble with day-to-day activities such as bathing, preparing meals, shopping, managing finances, etc.?: No Are you currently unemployed and looking for a job?: No Are you interested in more education?: No THRIVE Score: 0 AUDIT C Alcohol Use Questionnaire (AUDIT-C) 1. How often do you have a drink containing alcohol?: Never 3. How often do you have six or more drinks on one occasion?: Never Total Score: 0 KMEAR-7 AMB Questionnaire KEMAR-7 Date KEMAR - 7 assessed: 03/16/25 Feeling nervous, anxious, or on edge: 0 = Not at all Not being able to stop or control worryin = Not at all Worrying too much about different things: 0 = Not at all Trouble relaxin = Not at all Being so restless that it is hard to sit still: 0 = Not at all Becoming easily annoyed or irritable: 0 = Not at all Feeling afraid as if something awful might happen: 0 = Not at all Total KEMAR-7 score (0-4 normal; 5-9 mild; 10-14 moderate; 15-21 severe): 0 Source: Developed by Drs. Home Morel, Mary Nguyen, Сергей Gonzáles and colleagues, with an educational nidia from [employer]. Physical exam (Primary Care) Vital Signs: Last Vital Signs Temp 97.1 F 03/16/25 11:22 Pulse 74 03/16/25 11:22 BP 124/80 03/16/25 11:22 Pulse Ox 97 03/16/25 11:22 Oxygen Delivery Method Room Air 03/16/25 11:22 Care Plan Goal for BP management: BP in range BMI result Body Mass Index 30.2 Tobacco/Smoking Status: Tobacco use Status Tobacco use date assessed 03/16/25 03/16/25 11:32 Patient Tobacco Use Status Former Tobacco user 03/16/25 11:32 Tobacco use type Cigarette 03/16/25 11:32 e-Cigarette/Vaping Use Former Use 03/16/25 11:32 PHQ-9: PHQ-9 Score PHQ-9: Total score 0 03/16/25 11:32 Thrive Assessment: Date of Thrive Assessment Date Thrive assessed 03/16/25 03/16/25 11:32 Coding Level of Care Code New Pt Level 4 (27430) Complex EM visit Add On G2211 Diagnoses Shortness of Breath R06.02 Assessment & Plan Assessment & Plan (1) Shortness of Breath: Code(s): R06.02 - Shortness of breath Plan: History of Present Illness - The patient is a 79-year-old female presenting with dizziness and dyspnea on exertion. - Dizziness has been present for the past four days, with episodes occurring off and on previously. - Dyspnea occurs even with minimal exertion, such as walking short distances. - The patient denies any chest pain or orthopnea. - The patient has a history of weight loss, having lost 20 pounds since December through [employer]. - The patient was prescribed phentermine by Dr. Bill but stopped taking it over 10 days ago due to potential cardiac effects. - The patient is concerned about potential cardiac issues and has requested a full cardiac evaluation. Social History - The patient engages in regular aerobic exercise at the gym. - The patient follows a weight management program, having lost 20 pounds since December through [employer]. - The patient does not smoke. Review of Systems - General: Reports dizziness for the past four days. - Respiratory: Reports dyspnea on exertion. Denies chest pain or orthopnea. - Cardiovascular: Denies chest pain. Physical Exam General: Cooperative and healthy appearing Nutritional Appearance: Well nourished Orientation/consciousness: Patient oriented x3 Limitations: No limitations Head: Normal to inspection General: Appearance normal, both eyes and all related structures Neck: Normal visual inspection Chest: Normal palpation of entire chest wall Respiratory: Patient reports being out of breath and dizzy, especially when walking short distances. No chest pains reported. No smoking. ormal respiratory effort Neurology: Patient oriented x3. Reports dizziness, especially when walking short distances. Brain okay. Results Plan 1. Dizziness - Order a chest x-ray and cardiac EKG to evaluate potential cardiac causes. - Schedule a stress test to assess cardiac function. 2. Dyspnea On Exertion - Order a chest x-ray and cardiac EKG to evaluate potential cardiac causes. - Schedule a stress test to assess cardiac function. 3. Weight Loss - Monitor weight and nutritional intake. 4. Use Of Phentermine - Discontinue phentermine due to potential cardiac effects. Discussion Notes I discussed with the patient the need for a chest x-ray and cardiac EKG to evaluate her dizziness and dyspnea on exertion. I also recommended a stress test to further assess her cardiac function. We talked about discontinuing phentermine due to its potential cardiac effects. I advised her to be cautious until the tests are completed and to follow up with the results. Patient Instructions - Go to the hospital for a chest x-ray and cardiac EKG. - Schedule and complete a stress test. - Discontinue use of phentermine. - Be cautious with activities until test results are available. Orders: Orders ECG 12 lead EKG 03/16/25 R06.02 - Shortness of breath XR chest 2V 03/16/25 R05.9 - Cough, unspecified
--- OUTSIDE RECORDS SUMMARY | 2025-03-16 12:51 | XMS_ITS | Patient Health Record ---
Author Organization [facility] [place] Address [address] [place] [address] Care Team Providers Care Drywall Mechanic Name Role Phone Rick Paulino MD Primary Care Provider Sergio Hurtado Unavailable [phone] Allergies Allergen (clinical drug ingredient) Drug/Non Drug Allergy documented on EMR Reaction Allergy Type Onset Date Status Vicodin nausea and vomiting Drug Allergy Active Reason For Referral No Information Medications Medication SIG (Take, Route, Frequency, Duration) Notes Start Date End Date Status Magnesium Active Keflex 500 MG 1 capsule Orally tarik ry 12 hrs for 10 Active Aspirin 81 MG 1 tablet Orally Once a day Active Gabapentin 300 MG 1 capsule Orally fou r times a day Active Stool Softener Activ e Multivitamin Active Simvastatin 40 mg 1 tablet in the even ing Orally Once a day for 30 day(s) Not-Taking Atorvastatin Calcium 20 MG 1 tablet Orally Once a day Active Vitamin D3 2000 UNIT 1 capsule Orally On ce a day Not-Taking Social History Tobacco Use: Social History Observation Description Date Details (start date - stop date) Former Smoker NA - NA Tobacco Use/Smoking Question Answer Notes Are you a: former smoker Additional Findings: Tobacco Non-User Current no n-smoker Alcohol Screen Question Answer Notes Did you have a drink containing alcohol in the p ast year? No Points 0 Interpretation Negative Tobacco use other than smoking: Question Answer Notes Are you an other tobacco user? No Problems Problem Type SNOMED Code ICD Code Onset Dates Problem Status W/U Status Risk Notes Problem Localized, primary osteoarthritis of the ankle and/or foot (916243105) Primary osteoarthrit is, right ankle and foot (M19.071) Active confirmed Problem Localized, primary osteoarthritis of the ankle and/or foot (933475977) Primary osteoarthrit is, left ankle and foot (M19.072) Active confirmed Problem Acquired hammer toe of right foot (9839363819293411) Other hammer toe(s) (acquired), right foot (M20.41) Active confirmed Problem Acquired hammer toe of left foot (2921970687316463) Other hammer toe(s) (acquired), left foot (M20.42) Active confirmed Plan Of Treatment Pending Test Test Name Order Date X ray : Foot, right 3V 06/17/2018 X ray : Foot, right 3V 06/07/2020 X ray : Foot, right 3V 07/12/2020 [id number], Toes 06/07/2020 Insurance Providers Payer Name Payer Address Payer Phone Subscriber Number Group Number Insured Name Patient Relationship to Insured Coverage Start Date Coverage End Date Medicare National Govt Svcs Inc [address] [place] [address] [id number] Concha Hodgson Self - patient is the insured 8 [employer] Blue Shield [address] [place] [address] [phone] [id number] Concha Hodgson Self - patient is the insured Medical (General) History Medical History History ICD Code chicken pox headaches/migraines lyme disease measles mumps Back,Hip,and Knee pain Broken bones Cholesterol Cancer Gall bladder problems Headaches/Migraines Lyme disease Pain in Limb Pain in Limb Arthritis - Degenerative Hammer toe Onychomycosis Surgical History Surgery Date(Month/Year) gall bladder 1969
== END 2025-03-16 12:58 | disposition home or self-care (01) ==
LOC: HO.HMCHD 11:15
PROVIDERS: PCP Internal Medicine; Visit Provider Internal Medicine
DX: R06.02 Shortness of breath (principal)

== ENCOUNTER → 2025-03-16 11:52 | Outpatient (BNV) | payer MEDICARE, SELFPAY | PROVIDERS: PCP Internal Medicine; Visit Provider Internal Medicine | DX: R06.02 Shortness of breath (principal) | CPT/HCPCS: 93010 ==

== ENCOUNTER → 2025-03-16 12:04 | Outpatient (BNV) | payer MEDICARE, SELFPAY | PROVIDERS: PCP Internal Medicine; Visit Provider Radiology Diagnostic Radiology | DX: R05.9 Cough, unspecified (principal) | CPT/HCPCS: 71046 ==

== ENCOUNTER 2025-05-04 07:40 | Outpatient (AMB) | payer MEDICARE, SELFPAY ==
--- OUTSIDE RECORDS SUMMARY | 2025-05-04 07:43 | XMS_ITS | Patient Health Record ---
Author Organization [facility] bet[facility] [place] Address [address] [place] [address] Care Team Providers Care Debate Director Name Role Phone Rick Paulino MD Primary Care Provider Sergio Hurtado Unavailable [phone] Allergies Allergen (clinical drug ingredient) Drug/Non Drug Allergy documented on EMR Reaction Allergy Type Onset Date Status Vicodin nausea and vomiting Drug Allergy Active Reason For Referral No Information Medications Medication SIG (Take, Route, Frequency, Duration) Notes Start Date End Date Status Magnesium Active Keflex 500 MG 1 capsule Orally tarik ry 12 hrs; Duration: 10 Active Aspirin 81 MG 1 tablet Orally Once a day Active Gabapentin 300 MG 1 capsule Orally fou r times a day Active Stool Softener Activ e Multivitamin Active Simvastatin 40 mg 1 tablet in the even ing Orally Once a day; Duration: 30 day(s) Not-Taking Atorvastatin Calcium 20 MG [...] primary osteoarthritis of the ankle and/or foot (505222378) Primary osteoarthrit is, right ankle and foot (M19.071) Active confirmed Problem Primary osteoarthrit is, left ankle and foot (M19.072) Active confirmed Problem Acquired hammer toe of right foot (7771659109558600) Other hammer toe(s) (acquired), right foot (M20.41) Active confirmed Problem Acquired hammer toe of left foot (6549277164525079) Other hammer toe(s) (acquired), left foot (M20.42) Active confirmed Plan Of Treatment Pending Test Test Name Order Date X ray : Foot, right 3V 06/17/2018 X ray : Foot, right 3V 06/07/2020 X ray : Foot, right 3V 07/12/2020 [id number], Toes 06/07/2020 Insurance Providers Payer Name Payer Address Payer Phone Subscriber Number Group Number Insured Name Patient Relationship to Insured Coverage Start Date Coverage End Date Medicare National Govt Svcs Inc [address] [place] [address] [id number] Concha Hodgson Self - patient is the insured 8 [employer] Blue Shield [address] [place] [address] [phone] [id number] Concha Hodgson Self - patient is the insured Medical (General) History Medical History History ICD Code chicken pox headaches/migraines lyme disease measles mumps Back,Hip,and Knee pain Broken bones Cholesterol Cancer Gall bladder problems Headaches/Migraines Lyme disease Pain in Limb Pain in Limb Arthritis - Degenerative Hammer toe Onychomycosis Surgical History Surgery Date(Month/Year) gall bladder 1969
--- OUTSIDE RECORDS SUMMARY | 2025-05-04 07:43 | XMS_ITS | Patient Health Record ---
Author Organization [facility] Address [address] [place] [address] Care Team Providers Care Instructor Industrial Design Name Role Phone Danica Bill M.D. Primary Care Provider Unavail able Home Chow Unavailable [phone] Allergies Allergen (clinical drug ingredient) Drug/Non Drug Allergy documented on EMR Reaction Allergy Type Onset Date Status Vicodin Unknown Drug Allergy Active fentanyl Fentanyl vomiting Drug Allergy Active Reason For Referral No Information Medications Medication SIG (Take, Route, Frequency, Duration) Notes Start Date End Date Status Gabapentin 300 MG TAKE 1 CAPSULE BY MO UTH TWICE A DAY Oral for 90 Active Multivitamin - 1 tablet Orally Once a day Active rOPINIRole HCl 2 MG TAKE 1 TABLET BY CHUNG TH EVERYDAY AT BEDTIME Oral for 90 Active Atorvastatin Calcium 20 MG TAKE 1 TABLET BY MOUTH EVERY DAY Oral for 90 Active Stool Softener Activ e Magnesium Active Immunizations Vaccine Route Administration Date Status Comme nts Influenza Unknown 06/24/2019 Administered Problems Problem Type SNOMED Code ICD Code Onset Dates Problem Status W/U Status Risk Notes Problem [id number] Encounter for screening for malignant neoplasm of colon (Z12.11) Active confirmed Problem [id number] History of adenomatous polyp of colon (Z86.010) Active confirmed Plan Of Treatment Future Test Test Name Order Date COLONOSCOPY 01/08/2014 COLONOSCOPY 04/22/2020 Insurance Providers Payer Name Payer Address Payer Phone Subscriber Number Group Number Insured Name Patient Relationship to Insured Coverage Start Date Coverage End Date MEDICARE [place] [address] [place] [address] [id number] MAYI ANTONIO Self - patient is the insured MED[employer] ATT[employer] CLAIMS [address] [place] [address] [id number] MAYI ANTONIO Self - patient is the insured Medical (General) History Medical History History ICD Code Screening colonoscopy in 01/23 008--1 tubular adenoma removed--also diverticulosis and internal hemorrhoids Denies SD,DM,CVA,Lung disease,renal dise ase Hyperlipidemia Negative screening colonoscopy in 02/2014 Intolerant to Fentanyl with N/V Restless leg syndrome Surgical History Surgery Date(Month/Year) Cholecystectomy
--- OUTSIDE RECORDS SUMMARY | 2025-05-04 07:43 | XMS_ITS | Encounter Summary ---
Author Organization [facility] Address [address] [place] [address] [place] [phone] Phone Care Team Providers Care Moccasin Sewer Name Role Phone Rick Paulino MD Primary Care Provider Encounter Details Date Type Department Care Team (Late st Contact Info) Description 10/20/2020 Ancillary Orders [facility],Outside Imaging [address] [place], [place] [id number] System, Provider Not In, [facility] [address] [address] Social History Tobacco Use Types Packs/Day Years Used Date Smoking Tobacco: Never Smokeless Tobacco: Never Alcohol Use Standard Drinks/Week Comments Never 0 (1 standard drink = 0.6 oz pur e alcohol) Comments Unknown Sex and Gender Information Value Date Recorded Sex Assigned at Not on file Legal Sex Female 9:01 AM EST Gender Identity Not on file Sexual Orientation Not on file documented as of this encounter Plan of Treatment Not on file documented as of this encounter Results * XR Lower Extremity Outside (No Interpretation) (10/17/2020 12:00 AM EST) Narrative SYSTEMGENERATED, DOCUMENTATION - 10/20/2020 9:24 AM EST This study is for PACS storage only and not for interpretation. us Provider Not In System PhD [facility] OUTSIDE IMAGING W /OUT INTERPRETATION Final Result documented in this encounter Visit Diagnoses Not on filedocumented in this encounter Care Teams Moccasin Sewer Relationship Specialty Start Date End Date Rick Paulino MD [address] [place] [address] [place] [address] PCP - General Internal Medicine 10/18/20 documented as of this encounter Additional Source Comments The information contained in this document represents components of the legal health record. It is not the complete legal health record.[facility]
[2025-05-04 07:54] VITALS: BP 124/72; PULSE 64; O2SAT 96; BMI 29.8
--- NOTE | 2025-05-04 07:54 | MHC.PC.OV ---
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 Allergies hydrocodone (From VICODIN) Allergy (Unknown, Verified 05/04/25 08:11) Nausea and Vomiting fentanyl Allergy (Verified 05/04/25 08:11) Nausea and Vomiting Medication List - Last Reconciled 05/04/25 by Jazmine Youngblood PA-C cholecalciferol (vitamin D3) 125 mcg PO DAILY gabapentin 2 caps PO BID multivitamin 1 tab PO DAILY phentermine 37.5 mg PO DAILY pravastatin 1 tab PO BEDTIME ropinirole 1 tab PO BEDTIME Tobacco use date assessed: 03/16/25 Fall risk assessment: No Falls in past year Last assessed Fall Risk: 05/04/25 Dental Screening Dental Screen Date: 05/04/25 Did you have a dental visit in the last 12 months?: Yes Did you have a dental problem in the last 6 months where you did not have access to dental care?: No Was dental information given to patient?: No 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 Patel. She is being worked up dizziness and dyspnea and phentermine was discontinued at her last visit. Presenting for a wellness visit and management of chronic conditions. The patient has a history of osteoarthritis, with a left hip replacement performed by Dr. Bhat approximately three years ago. The patient has been on gabapentin and ropinirole for restless leg syndrome for a long duration. The patient is on pravastatin for cholesterol management, with recent blood work indicating good cholesterol levels. The patient has fractured her ankle twice but did not require surgery. Patient was started on phentermine by Dr. Bill while on this medication she developed tachycardia and shortness of breath. At which point the phentermine was discontinued by Dr. Patel and a stress test, EKG and chest x-ray were ordered for further evaluation. Since discontinuation of the phentermine she has no longer had symptoms and is wanting to cancel her stress test. mammo: Declining today colonoscopy: 2020 was told when the no longer needed DEXA: Ordered [facility] Medical History History of fracture of left ankle Osteoarthritis of left hip Osteoarthritis Hx of skin cancer, basal cell Recovering alcoholic Restless leg syndrome Hyperlipemia Surgical History S/P appendectomy Status post left hip replacement History of total left hip replacement Hx of cholecystectomy Hx of colonoscopy Family History Mother No problems noted. Father No problems noted. Other No family history of coronary artery disease Social History Household Members: Spouse Housing: House Are you a primary daycare worker to a significant other at home: No Do you presently have visiting nurse or other home services: No Alcohol intake: current Alcohol intake frequency: does not drink Patient Tobacco Use Status: Former Tobacco user Tobacco use type: Cigarette e-Cigarette/Vaping Use: Former Use Second Hand Smoke Exposure: No service: No Current occupational status: retired Cognitive needs: No Hearing needs: No Vision needs: Yes (rx glasses) Questionnaire PHQ-9 Over the last 2 weeks, how often have you been bothered by any of the following problems? 1. Little interest or pleasure in doing things: not at all 2. Feeling down, depressed, or hopeless: not at all 3. Trouble falling or staying asleep, or sleeping too much: not at all 4. Feeling tired or having little energy: not at all 5. Poor appetite or overeating: not at all 6. Feeling bad about yourself - or that you are a failure or have let yourself or your family down: not at all 7. Trouble concentrating on things, such as reading the newspaper or watching television: not at all 8. Moving or speaking so slowly that other people could have noticed. Or the opposite - being so fidgety or restless that you have been moving around a lot more than usual: not at all 9. Thoughts that you would be better off or of hurting yourself in some way: not at all Total score: 0 Depression Screening Interpretation: Negative Depression Screening Done: Yes 43773 - PHQ-9 Billing: Yes Source: Developed by Drs. Home Morel, Сергей Reyes and colleagues, with an educational nidia from [employer]. Thrive Questionnaire Date Thrive assessed: 05/04/25 I am a: Patient What is your living situation today?: I have a steady place to live Within the past 12 months, did the food you bought not last and you didn't have the money to get more?: Never true Within the past 12 months, did you worry whether your food would run out before you got money to buy more?: Never true Do you have trouble paying for medicines?: No Do you have trouble getting transportation to medical appointments?: No Do you have trouble paying your heating and electricity bill?: No Do you have trouble taking care of your child, family member or friend?: No Do you have trouble with day-to-day activities such as bathing, preparing meals, shopping, managing finances, etc.?: No Are you currently unemployed and looking for a job?: No Are you interested in more education?: No Please select the resources that you would like help with: None Currently or been in a relationship where the following occur: I choose not to answer THRIVE Score: 0 AUDIT C Alcohol Use Questionnaire (AUDIT-C) 1. How often do you have a drink containing alcohol?: Never 3. How often do you have six or more drinks on one occasion?: Never Total Score: 0 KEMAR-7 AMB Questionnaire KEMAR-7 Date KEMAR - 7 assessed: 05/04/25 Feeling nervous, anxious, or on edge: 0 = Not at all Not being able to stop or control worryin = Not at all Worrying too much about different things: 0 = Not at all Trouble relaxin = Not at all Being so restless that it is hard to sit still: 0 = Not at all Becoming easily annoyed or irritable: 0 = Not at all Feeling afraid as if something awful might happen: 0 = Not at all Total KEMAR-7 score (0-4 normal; 5-9 mild; 10-14 moderate; 15-21 severe): 0 Source: Developed by Drs. Home Morel, Mary Nguyen, Сергей Gonzáles and colleagues, with an educational nidia from [employer]. KEMAR-7 Assessment Billing KEMAR-7 Assessment Tool: KEMAR-7 Assessment 44312 Review of Systems Const Denies body aches, Denies chills, Denies fever(s), Denies headache(s) and Denies poor appetite Eyes Reports no additional complaints ENT Denies dysphagia, Denies dizziness, Denies headache(s) and Denies odynophagia Card Denies chest pain, Denies syncope, Denies edema, Denies irregular heart rhythm, Denies lightheadedness and Denies dyspnea Resp Denies cough and Denies dyspnea GI Denies abdominal pain, Denies constipation, Denies dysphagia, Denies diarrhea, Denies nausea, Denies odynophagia and Denies vomiting Reports no additional complaints Musc Reports no additional complaints and Denies abnormal gait Skin/Breast Reports system reviewed and no additional complaints, except as documented Neuro Denies abnormal gait, Denies dizziness, Denies syncope and Denies headache(s) Psych Reports no additional complaints Physical exam (Primary Care) Vital Signs: Last Vital Signs Pulse 64 05/04/25 07:54 BP 124/72 05/04/25 07:54 Pulse Ox 96 05/04/25 07:54 Oxygen Delivery Method Room Air 05/04/25 07:54 BMI result Body Mass Index 29.8 Tobacco/Smoking Status: Tobacco use Status Tobacco use date assessed 03/16/25 05/04/25 07:56 Patient Tobacco Use Status Former Tobacco user 05/04/25 07:56 Tobacco use type Cigarette 05/04/25 07:56 e-Cigarette/Vaping Use Former Use 05/04/25 07:56 PHQ-9: PHQ-9 Score PHQ-9: Total score 0 05/04/25 08:20 Depression Screening Interpretation: Negative Thrive Assessment: Date of Thrive Assessment Date Thrive assessed 05/04/25 05/04/25 07:56 Currently or been in a relationship where the following occur: I choose not to answer Const General: cooperative, healthy appearing, comfortable and no acute distress Orientation/consciousness: patient oriented x3 HENMT Head: Yes normocephalic Ears: hearing grossly normal bilaterally General nose exam: Normal external nose present Eyes General: appearance normal, both eyes and all related structures Conjunctivae: conjunctivae normal Neck Neck: Yes full ROM and Yes no lymphadenopathy Resp Effort & Inspection: normal respiratory effort Auscultation: clear to auscultation bilaterally, no crackles, no rales, no rhonchi and no wheezes Cardio Rate: regular rate Rhythm: regular rhythm Skin General skin exam: no rashes or lesions noted Neuro General: patient oriented x3 Gait exam (Neuro): Normal gait present Extrem General: Yes normal to inspection, Yes full ROM and No edema Psych Affect: normal affect Attitude: cooperative Insight: Good insight present (Psych) Judgement: Good judgement present (Psych) Coding Level of Care Code Est Pt Level 4 (94555) Diagnoses Hyperlipidemia, unspecified hyperlipidemia type E78.5 Hyperlipidemia type: unspecified Obesity (BMI 30.0-34.9) E66.811 Restless leg syndrome G25.81 Additional Codes KEMAR-7 Assessment Billing - KEMAR-7 Assessment Tool: KEMAR-7 Assessment 53498 ([id number]) PHQ-9 - 88397 - PHQ-9 Billing: Yes ([id number]) Assessment & Plan Assessment & Plan (1) Hyperlipemia: Code(s): E78.5 - Hyperlipidemia, unspecified Category: Medical Qualifiers: Hyperlipidemia type: unspecified Qualified Code(s): E78.5 - Hyperlipidemia, unspecified Plan: Avoid foods that are high in cholesterol such as red meat, fried foods, eggs and baked goods. Triglyceride goal of less than 150 and LDL goal of less than 100. Continue on pravastatin (2) Obesity (BMI 30.0-34.9): Code(s): E66.811 - Obesity, class 1 Category: Medical Plan: Healthy diet and regular exercise is encouraged. Patient is no longer a candidate for phentermine as she did have side effects including shortness of breath and heart racing. She has worked with weight watchers as well as completed diet and exercise without good benefit for her weight loss. Plan to trial on Zepbound as she has tried and failed phentermine and conservative measures. Patient was counseled today on the risks and benefits of GLP-1 injections as well as the dosing schedule. She has no family history or personal history of thyroid disease and no gallbladder disease. Discussed with the patient the potential GI side effects of this medication. Plan to have repeat blood work after one month of therapy to monitor kidney and liver function before increasing the dose of this medication. Follow up in 2 months for a weight check. (3) Restless leg syndrome: Comment: ropinirole and gabapentin Code(s): G25.81 - Restless legs syndrome Category: Medical Plan: Continue on ropinirole and gabapentin as prescribed by her last PCP. Plan The patient will continue with her current medications, including gabapentin and ropinirole for restless leg syndrome, and pravastatin for hyperlipidemia. A bone density screening has been ordered to assess for osteoporosis risk, given her age and history. The stress test initially planned will be canceled as the patient no longer experiences shortness of breath, which was likely related to phentermine use. I did discuss with the patient if symptoms should develop again to reach out to the office to have stress test scheduled. Alternative weight management options, such as Zepbound injections, will be explored, with efforts to secure insurance coverage for the same. Preventative care measures include maintaining up-to-date vaccinations, with the patient already having received pneumonia and shingles vaccines. Lifestyle modifications, such as regular exercise and dietary adjustments, will be encouraged to support overall health and weight management. Follow-up visits will be scheduled to monitor progress and reassess the need for any additional interventions. This note was constructed using voice recognition software. While every effort has been made to ensure accuracy and packer denture, still areas may have been included sometimes these areas may affect the content or meeting of the given symptoms. Total time spent caring for the patient today was thirty minutes. This includes time spent before the visit reviewing the chart, time spent during the visit, and time spent after the visit and documentation. Patient was informed and verbally consented to the use of an ambient scribe for clinic note documentation during this visit. Orders: Orders XR DEXA axial skeleton 05/04/25 Z78.0 - Asymptomatic menopausal state Medications: New tirzepatide (weight loss) (Zepbound) for 4 weeks 2.5 mg (0.5 mL) subcut QWEEK 2 mL 0RF
== END 2025-05-04 08:32 | disposition home or self-care (01) ==
LOC: HO.HMCH 07:41
DX: E78.5 Hyperlipidemia, unspecified (principal); E66.811 Obesity, class 1; G25.81 Restless legs syndrome; Z68.29 Body mass index [BMI] 29.0-29.9, adult

== ENCOUNTER → 2025-05-04 07:40 | Outpatient (BNVA) | payer MEDICARE, SELFPAY | PROVIDERS: PCP Internal Medicine | DX: Z00.00 Encounter for general adult medical examination without abnormal findings (principal); Z13.31 Encounter for screening for depression; Z76.89 Persons encountering health services in other specified circumstances; E78.5 Hyperlipidemia, unspecified; G25.81 Restless legs syndrome; E66.811 Obesity, class 1; Z68.29 Body mass index [BMI] 29.0-29.9, adult; Z71.3 Dietary counseling and surveillance; Z87.891 Personal history of nicotine dependence | CPT/HCPCS: 96127; 99212 ==

== ENCOUNTER 2025-06-22 08:34 | Outpatient (REF) | payer MEDICARE, SELFPAY ==
--- NOTE | ~2025-06-22 | MM_ITS ---
EXAMINATION: DXA BONE DENSITY AXIAL HISTORY: Z78.0 - Asymptomatic menopausal state TECHNIQUE: [employer]te[employer] Dual energy absorptiometry (DEXA) of the lumbar spine, total right hip, and femoral neck was performed. COMPARISON: Comparison is made with the prior examination dated 02/19/2008. FINDINGS: The bone mineral density of the lumbar spine is 1.139 g/cm2, corresponding to a T-score of -0.3, and a Z-score of 0.8. This is indicative of normal bone mineral density. This represents a BMD change of -2.2% compared to the prior exam. This is not statistically significant. The bone mineral density of the right total hip is 0.833 g/cm2, corresponding to a T-score of -1.4, and a Z-score of 0.0. This is indicative of osteopenia. This represents a BMD change of -10.7% compared to the prior exam. This is statistically significant. The bone mineral density of the right femoral neck is 0.812 g/cm2, corresponding to a T-score of -1.6, and a Z-score of 0.0. This is indicative of osteopenia. This represents a BMD change of -2.1% compared to the prior exam. FRACTURE RISK: The FRAX index suggests a ten year probability of major osteoporotic fracture of 19.2%, and of hip fracture 4.2%. MM/XR DEXA axial skeleton IMPRESSION: Based on bone mineral density, and according to World Health Organization (WHO) criteria, the diagnosis is consistent with osteopenia. Statistically, 68% of repeat scans fall within 1 SD (+/- 0.010 g/cm2 for AP spine L1-L4) and 1 SD (+/- 0.012 g/cm2 for femur total) FRAX is a trademark of the [employer] [place] for Metabolic Bone Disease, a World Health Organization (WHO) Collaborating Center. Electronically signed by: Home West MD 06/22/2025 09:11 AM EDT
--- OUTSIDE RECORDS SUMMARY | 2025-06-22 08:59 | XMS_ITS | Clinical Summary ---
Author Organization [facility] Address [address] [place] [address] Phone Care Team Providers Care Lumber Salvager Name Role Phone Rick Paulino MD Primary Care Provider Allergies Active Allergy Reactions Criticality Noted Date Comments Hydrocodone-Acetaminophen 10/18/2020 Medications gabapentin (NEURONTIN) 300 MG capsule Take 600 mg by mouth 2 (two) times a day. 08/28/2020 Active pravastatin (PRAVACHOL) 20 MG tablet Take 20 mg by mouth. 10/01/2020 Active rOPINIRole (REQUIP) 2 MG tablet TAKE 1 TABLET BY MOUTH EVERYDAY AT BEDTIME 09/09/2020 Active acetaminophen (TYLENOL) 500 MG tablet Take 500 mg by mouth every 6 (six) hours as needed for pain (specific location in comments). Active Social History Tobacco Use Types Packs/Day Years Used Date Smoking Tobacco: Never Smokeless Tobacco: Never Alcohol Use Standard Drinks/Week Comments Never 0 (1 standard drink = 0.6 oz pur e alcohol) Education Answer Date Recorded Are you interested in more education? Not on joann e 01/19/2023 Are you concerned about learning? Not on file 01/19/2023 No 01/19/2023 No 01/19/2023 Digital Access Answer Date Recorded No 02/17/2023 No 02/17/2023 No 02/17/2023 Reliable internet access at home? Not on file 02/17/2023 Device with a working camera? Not on file Comments Unknown Sex and Gender Information Value Date Recorded Sex Assigned at Not on file Legal Sex Female 9:01 AM EST Gender Identity Not on file Sexual Orientation Not on file Last Filed Vital Signs Vital Sign Reading Time Taken Comments Blood Pressure - - Pulse - - Temperature - - Respiratory Rate - - Oxygen Saturation - - Inhaled Oxygen Concentration - - Weight 79.4 kg (175 lb) 11/01/2020 9:45 AM EST Height 170.2 cm (5' 7 ) 11/01/2020 9:45 AM EST Body Mass Index 27.41 11/01/2020 9:45 AM EST Plan of Treatment Health Maintenance Due Date Last Done Comments Adult Td,Tdap Booster 1945 LIPID PANEL 1946 DEPRESSION SCREENING 1958 HEPATITIS C SCREENING 1964 OSTEOPOROSIS SCREENING INITIAL (ONE-TIME) 2011 PNEUMOCOCCAL VACCINES (50+ years) (2 of 2 - PPSV23) 07/19/2017 07/19/2016 RSV VACCINE (1 - 1-dose 75+ series) 2021 INFLUENZA VACCINE (#1) 2025 8, 07/19/2016, 07/15/2015, Additional history exists COVID-19 VACCINE (2 - 2024- season) 2025 11/19/2020 ZOSTER VACCINES Completed 11/25/2018, 03/18/2018 SMOKING STATUS SCREENING (Once After 26 Yrs) Completed 11/01/2020 HEPATITIS A VACCINES Aged Out No long er eligible based on patient's age to complete this topic HIB VACCINES Aged Out No longer eligi ble based on patient's age to complete this topic MENINGOCOCCAL VACCINES (ACWY) Aged Out No longer eligible based on patient's age to complete this topic MENINGOCOCCAL VACCINES (B) Aged Out N o longer eligible based on patient's age to complete this topic Medical Devices Not on file Insurance MEDICARE PART A & B [employer] SUPPLEMENT MEDICARE PART A & B [employer] SUPPLEMENT MEDICARE PART A & B [employer] SUPPLEMENT MEDICARE PART A & B [employer] SUPPLEMENT MEDICARE PART A & B [employer] SUPPLEMENT MEDICARE PART A & B [employer] SUPPLEMENT MEDICARE PART A & B [employer] SUPPLEMENT MEDICARE PART A & B [employer] MEDEX SUPPLEMENT MEDICARE PART A & B [employer] MEDEX SUPPLEMENT Care Teams Lumber Salvager Relationship Specialty Start Date End Date Rick Paulino MD [address] [place] [address] [place] [address] PCP - General Internal Medicine 10/18/20 Additional Source Comments The information contained in this document represents components of the legal health record. It is not the complete legal health record.[facility]
--- OUTSIDE RECORDS SUMMARY | 2025-06-22 08:59 | XMS_ITS | Patient Health Record ---
Author Organization [facility] Address [address] [place] [address] Care Team Providers Care Turning Sander Operator Name Role Phone Danica Bill M.D. Primary Care Provider Unavail able Home Chow Unavailable [phone] Allergies Allergen (clinical drug ingredient) Drug/Non Drug [...] Problem Status W/U Status Risk Notes Problem [id number] Encounter for screening for malignant neoplasm of colon (Z12.11) Active confirmed Problem [id number] History of adenomatous polyp of colon (Z86.010) Active confirmed Plan Of Treatment Future Test Test Name Order Date COLONOSCOPY 01/08/2014 COLONOSCOPY 04/22/2020 Insurance Providers Payer Name Payer Address Payer Phone Subscriber Number Group Number Insured Name Patient Relationship to Insured Coverage Start Date Coverage End Date MEDICARE OF [place] [address] [place] [address] [phone] [id number] MAYI ANTONIO Self - patient is the insured MED[employer] ATTN CLAIMS [address] [place] [address] [id number] MAYI ANTONIO Self - patient is the insured Medical (General) History Medical History History ICD Code Screening colonoscopy in 01/23 008--1 tubular adenoma removed--also diverticulosis and internal hemorrhoids Denies AR,DM,CVA,Lung disease,renal dise ase Hyperlipidemia Negative screening colonoscopy in 02/2014 Intolerant to Fentanyl with N/V Restless leg syndrome Surgical History Surgery Date(Month/Year) Cholecystectomy
--- OUTSIDE RECORDS SUMMARY | 2025-06-22 08:59 | XMS_ITS | Encounter Summary ---
Author Organization [facility] Address [address] [facility] [address] [facility] [address] [place] [address] Phone Care Team Providers Care Electron Gun Inspector Name Role Phone Rick Paulino MD Primary Care Provider Encounter Details Date Type Department Care Team (Late st Contact Info) Description 10/20/2020 Ancillary Orders [facility],Outside Imaging [address] [place], [place] [id number] System, Provider Not In, [facility] [address] [address] Social History Tobacco Use Types Packs/Day Years [...] on filedocumented in this encounter Care Teams Electron Gun Inspector Relationship Specialty Start Date End Date Rick Paulino MD [address] [place] [address] [place] [address] PCP - General Internal Medicine 10/18/20 documented as of this encounter Additional Source Comments The information contained in this document represents components of the legal health record. It is not the complete legal health record.[facility]
--- OUTSIDE RECORDS SUMMARY | 2025-06-22 08:59 | XMS_ITS | Patient Health Record ---
Author Organization [facility] Address [address] [place] [address] Care Team Providers Care Machine Silver Stripper Name Role Phone Rick Paulino MD Primary Care Provider Sergio Hurtado Unavailable [phone] Allergies Allergen (clinical drug ingredient) Drug/Non Drug [...] primary osteoarthritis of the ankle and/or foot (286371013) Primary osteoarthrit is, right ankle and foot (M19.071) Active confirmed Problem Localized, primary osteoarthritis of the ankle and/or foot (862378019) Primary osteoarthrit is, left ankle and foot (M19.072) Active confirmed Problem Acquired hammer toe of right foot (0680760460768200) Other hammer toe(s) (acquired), right foot (M20.41) Active confirmed Problem Acquired hammer toe of left foot (3935220261755143) Other hammer toe(s) (acquired), left foot (M20.42) Active confirmed Plan Of Treatment Pending Test Test Name Order Date X ray : Foot, right 3V 06/17/2018 X ray : Foot, right 3V 06/07/2020 X ray : Foot, right 3V 07/12/2020 [id number], Toes 06/07/2020 Insurance Providers Payer Name Payer Address Payer Phone Subscriber Number Group Number Insured Name Patient Relationship to Insured Coverage Start Date Coverage End Date Medicare National Govt Sv[employer] [address] [place] [address] [id number] Concha Hodgson Self - patient is the insured 8 [employer] Blue [employer] [address] [place] [address] [id number] Concha Hodgson Self - patient is the insured Medical (General) History Medical History History ICD Code chicken pox headaches/migraines lyme disease measles mumps Back,Hip,and Knee pain Broken bones Cholesterol Cancer Gall bladder problems Headaches/Migraines Lyme disease Pain in Limb Pain in Limb Arthritis - Degenerative Hammer toe Onychomycosis Surgical History Surgery Date(Month/Year) gall bladder 1968
== END 2025-06-22 08:35 | disposition home or self-care (01) ==
LOC: HO.MAMMO 08:34
DX: Z13.820 Encounter for screening for osteoporosis (principal); Z78.0 Asymptomatic menopausal state
CPT/HCPCS: 77080

== ENCOUNTER → 2025-06-22 08:45 | Outpatient (BNV) | payer MEDICARE, SELFPAY | PROVIDERS: Visit Provider Radiology Diagnostic Radiology | DX: E28.39 Other primary ovarian failure (principal) | CPT/HCPCS: 77080 ==

== ENCOUNTER 2025-08-10 09:13 | Outpatient (AMB) | payer MEDICARE, SELFPAY ==
[2025-08-10 09:15] VITALS: BP 130/90; PULSE 90; TEMP 36.8; O2SAT 97; BMI 30.4
--- NOTE | 2025-08-10 09:15 | A.OFFPC_ITS ---
Vital Signs 08/10/25 09:15 Height 5 ft 7 in Blood Pressure Location Lt brachial Position Sitting Pulse Source Pulse Oximeter Temp 98.3 F Temp Source Temporal Artery Scan Oxygen Delivery Method Room Air Intake Visit Reasons: annual exam/AWV G0438 Allergies hydrocodone (From VICODIN) Allergy (Unknown, Verified 08/10/25 09:16) Nausea and Vomiting fentanyl Allergy (Verified 08/10/25 09:16) Nausea and Vomiting Tobacco use date assessed: 03/16/25 Fall risk assessment: No Falls in past year Last assessed Fall Risk: 05/04/25 Dental Screening Dental Screen Date: 05/04/25 Did you have a dental visit in the last 12 months?: Yes Did you have a dental problem in the last 6 months where you did not have access to dental care?: No Was dental information given to patient?: No [facility] Medical History History of fracture of left ankle Osteoarthritis of left hip Osteoarthritis Hx of skin cancer, basal cell Recovering alcoholic Restless leg syndrome Hyperlipemia Surgical History S/P appendectomy Status post left hip replacement History of total left hip replacement Hx of cholecystectomy Hx of colonoscopy Family History Mother No problems noted. Father No problems noted. Other No family history of coronary artery disease Social History Household Members: Spouse Housing: House Are you a primary disabilities caregiver to a significant other at home: No Do you presently have visiting nurse or other home services: No Alcohol intake: current Alcohol intake frequency: does not drink Patient Tobacco Use Status: Former Tobacco user Tobacco use type: Cigarette e-Cigarette/Vaping Use: Former Use Second Hand Smoke Exposure: No service: No Current occupational status: retired Cognitive needs: No Hearing needs: No Vision needs: Yes (rx glasses) Questionnaire PHQ-9 Over the last 2 weeks, how often have you been bothered by any of the following problems? 1. Little interest or pleasure in doing things: not at all 2. Feeling down, depressed, or hopeless: not at all 3. Trouble falling or staying asleep, or sleeping too much: not at all 4. Feeling tired or having little energy: not at all 5. Poor appetite or overeating: not at all 6. Feeling bad about yourself - or that you are a failure or have let yourself or your family down: not at all 7. Trouble concentrating on things, such as reading the newspaper or watching television: not at all 8. Moving or speaking so slowly that other people could have noticed. Or the opposite - being so fidgety or restless that you have been moving around a lot more than usual: not at all 9. Thoughts that you would be better off or of hurting yourself in some way: not at all Total score: 0 Depression Screening Interpretation: Negative Depression Screening Done: Yes 64194 - PHQ-9 Billing: Yes Source: Developed by Drs. Home Morel, Mary Nguyen, Сергей Gonzáles and colleagues, with an educational nidia from [employer]. Thrive Questionnaire Date Thrive assessed: 04/27/25 I am a: Patient What is your living situation today?: I have a steady place to live Within the past 12 months, did the food you bought not last and you didn't have the money to get more?: Never true Within the past 12 months, did you worry whether your food would run out before you got money to buy more?: Never true Do you have trouble paying for medicines?: No Do you have trouble getting transportation to medical appointments?: No Do you have trouble paying your heating and electricity bill?: No Do you have trouble taking care of your child, family member or friend?: No Do you have trouble with day-to-day activities such as bathing, preparing meals, shopping, managing finances, etc.?: No Are you currently unemployed and looking for a job?: No Are you interested in more education?: No Please select the resources that you would like help with: None Currently or been in a relationship where the following occur: I choose not to answer THRIVE Score: 0 AUDIT C Alcohol Use Questionnaire (AUDIT-C) 1. How often do you have a drink containing alcohol?: Never 3. How often do you have six or more drinks on one occasion?: Never Total Score: 0 KEMAR-7 AMB Questionnaire KEMAR-7 Date KEMAR - 7 assessed: 05/04/25 Feeling nervous, anxious, or on edge: 0 = Not at all Not being able to stop or control worryin = Not at all Worrying too much about different things: 0 = Not at all Trouble relaxin = Not at all Being so restless that it is hard to sit still: 0 = Not at all Becoming easily annoyed or irritable: 0 = Not at all Feeling afraid as if something awful might happen: 0 = Not at all Total KEMAR-7 score (0-4 normal; 5-9 mild; 10-14 moderate; 15-21 severe): 0 Source: Developed by Drs. Home Morel, Mary Nguyen, Сергей Gonzáles and colleagues, with an educational nidia from [employer]. KEMAR-7 Assessment Billing KEMAR-7 Assessment Tool: KEMAR-7 Assessment 38561 Physical exam (Primary Care) Tobacco/Smoking Status: Tobacco use Status Tobacco use date assessed 03/16/25 05/04/25 07:56 Patient Tobacco Use Status Former Tobacco user 05/04/25 07:56 Tobacco use type Cigarette 05/04/25 07:56 e-Cigarette/Vaping Use Former Use 05/04/25 07:56 Depression Screening Interpretation: Negative Thrive Assessment: Date of Thrive Assessment Date Thrive assessed 04/27/25 08/03/25 12:18 Currently or been in a relationship where the following occur: I choose not to answer Coding Additional Codes PHQ-9 - 86611 - PHQ-9 Billing: Yes ([id number]) KEMAR-7 Assessment Billing - KEMAR-7 Assessment Tool: KEMAR-7 Assessment 33940 ([id number])
--- NOTE | 2025-08-10 09:21 | A.OFFVIS_ITS ---
Intake Vital Signs 08/10/25 09:15 08/10/25 09:54 Height 5 ft 7 in Weight 194 lb 2 oz BMI 30.4 BP 130/90 H 130/82 Blood Pressure Location Lt brachial Lt brachial Position Sitting Sitting Pulse 90 Pulse Source Pulse Oximeter Temp 98.3 F Temp Source Temporal Artery Scan Pulse Oximetry (%) 97 Oxygen Delivery Method Room Air Intake Visit Reasons: annual exam/AWV G0438 Allergies hydrocodone (From VICODIN) Allergy (Unknown, Verified 08/10/25 09:26) Nausea and Vomiting fentanyl Allergy (Verified 08/10/25 09:26) Nausea and Vomiting Medication List - Last Reconciled 08/10/25 by Jazmine Youngblood PA-C cholecalciferol (vitamin D3) 125 mcg PO DAILY gabapentin 2 caps PO BID multivitamin 1 tab PO DAILY pravastatin 20 mg PO BEDTIME ropinirole 1 tab PO BEDTIME tirzepatide (weight loss) (Zepbound) 2.5 mg (0.5 mL) subcut QWEEK HPI annual exam/AWV G0438 HPI Details 79 year old female with past medical his tory of restless leg, hyperlipidemia and osteopenia last seen 04/2025 coming in for AWV. Presenting for annual exam. The patient reports recent onset of intermittent pain under her left breast area that occurs with deep inspiration, which she first noticed while she was at the gym. The pain lasts for a couple of minutes and then resolves completely. She believes the pain is muscular in nature and is not associated with eating, exercise or any other symptom. She has had three episodes of this discomfort all lasting for short duration before resolving. The patient leads an active lifestyle, including water exercises, daily hikes of about 1.5 miles with her dog, and she monitors her heart rate during activity. She also donates plasma periodically, which involves monitoring of her protein and iron levels. mammo: Declining today eye exam: colonoscopy: 2019 was told when the no longer needed DEXA: 06/2025 osteopenia vaccines: FLU given today [facility] Medical History History of fracture of left ankle Osteoarthritis of left hip Osteoarthritis Hx of skin cancer, basal cell Recovering alcoholic Restless leg syndrome Hyperlipemia Surgical History S/P appendectomy Status post left hip replacement History of total left hip replacement Hx of cholecystectomy Hx of colonoscopy Family History Mother No problems noted. Father No problems noted. Other No family history of coronary artery disease Social History Household Members: Spouse Housing: House Are you a primary spiritual care coordinator to a significant other at home: No Do you presently have visiting nurse or other home services: No Alcohol intake: current Alcohol intake frequency: does not drink Patient Tobacco Use Status: Former Tobacco user Tobacco use type: Cigarette e-Cigarette/Vaping Use: Former Use Second Hand Smoke Exposure: No service: No Current occupational status: retired Cognitive needs: No Hearing needs: No Vision needs: Yes (rx glasses) Questionnaire Medicare Wellness Checkup [age] What gender do you identify with?: female During the past 4 weeks, how much have you been bothered by emotional problems such as feeling anxious, depressed, irritable, sad or downhearted, and blue?: not at all During the past 4 weeks, has your physical & emotional health limited your social activities with family, friends, neighbors, or groups?: not at all During the past 4 weeks, how much bodily pain have you generally had?: very mild pain During the past 4 weeks, was someone available to help you if you needed & wanted help?: yes, as much as I wanted During the past 4 weeks, what was the hardest physical activity you could do for at least 2 minutes?: heavy Can you get to places out of walking distance without help? (For eg., can you travel alone on buses, taxis or drive your car?): Yes Can you go shopping for groceries or clothes without someone's help?: Yes Can you prepare your own meals?: Yes Can you do your housework without help?: Yes Because of any health problems, do you need the help of another person with your personal care needs such as eating, bathing, dressing or getting around the house?: No Can you handle your own money without help?: Yes During the past 4 weeks, how would you rate your health in general?: good During the past 4 weeks how have things been going for you?: very well; could hardly better Are you having difficulties driving your car?: no Do you always fasten your seat belt when you are in a car?: yes, usually During past 4 weeks, have you been bothered by the following: never: Falling or dizzy when standing up, Sexual problems?, Trouble eating well?, Teeth or denture problems?, Problems using the telephone? and Tiredness or fatigue? Have you fallen 2 or more times in the past year?: No Are you afraid of falling?: No Are you a smoker?: no During the past 4 weeks, how many drinks of wine, beer, or other alcoholic beverages did you have?: no alcohol at all Do you exercise for about 20 minutes 3 or more times a week?: yes, all the time Have you been given information to help with the following?: no: Hazards in your house that might hurt you? and no: Keeping track of your medications? How often do you have trouble taking medicines the way you have been told to take them?: I always take medicine as prescribed How confident are you that you can control & manage most of your health problems?: very confident What is your race?: White Mini Mental State Exam (MMSE) Orientation What is the (year) (season) (date) (day) (month)?: year, season, date, day and month Where are we (state) (county) (town or city) (hospital) (floor)?: state, county, town or city, hospital/clinic and floor Score Score: 10 PHQ-9 Over the last 2 weeks, how often have you been bothered by any of the following problems? 1. Little interest or pleasure in doing things: not at all 2. Feeling down, depressed, or hopeless: not at all 3. Trouble falling or staying asleep, or sleeping too much: not at all 4. Feeling tired or having little energy: not at all 5. Poor appetite or overeating: not at all 6. Feeling bad about yourself - or that you are a failure or have let yourself or your family down: not at all 7. Trouble concentrating on things, such as reading the newspaper or watching television: not at all 8. Moving or speaking so slowly that other people could have noticed. Or the opposite - being so fidgety or restless that you have been moving around a lot more than usual: not at all 9. Thoughts that you would be better off or of hurting yourself in some way: not at all Total score: 0 Depression Screening Interpretation: Negative Depression Screening Done: Yes Source: Developed by Drs. Home Morel, Mary Nguyen, Сергей Gonzáles and colleagues, with an educational ndiia from [employer]. Review of Systems Const Denies body aches, Denies fatigue, Denies fever(s), Denies frequent falls, Denies headache(s) and Denies weakness Eyes Reports no additional complaints and Denies change in vision ENT Denies dysphagia, Denies dizziness, Denies facial pain, Denies headache(s), Denies nasal congestion and Denies odynophagia Card Denies chest pain, Denies syncope, Denies irregular heart rhythm, Denies leg edema, Denies lightheadedness and Denies dyspnea Resp Denies cough and Denies dyspnea GI Denies constipation, Denies dysphagia, Denies dyspepsia, Denies diarrhea, Denies nausea, Denies odynophagia and Denies vomiting Denies urinary frequency, Denies dysuria, Denies urinary hesitancy and Denies urinary urgency Musc Denies back pain and Denies myalgias Skin/Breast Reports system reviewed and no additional complaints, except as documented Neuro Denies dizziness, Denies syncope, Denies frequent falls, Denies headache(s) and Denies weakness Psych Reports no additional complaints Endo Denies fatigue Physical Exam Vital Signs: Last Vital Signs Temp 98.3 F 08/10/25 09:15 Pulse 90 08/10/25 09:15 BP 130/82 08/10/25 09:54 Pulse Ox 97 08/10/25 09:15 Oxygen Delivery Method Room Air 08/10/25 09:15 BMI result Body Mass Index 30.4 Const General: cooperative, healthy appearing, comfortable and no acute distress Orientation/consciousness: patient oriented x3 HEENT Head: Yes normocephalic Ears: hearing grossly normal bilaterally, external ears normal, TM's normal bilaterally and EAC's normal General nose exam: Normal external nose present Face and sinus: Yes normal facial exam and Yes sinuses nontender Mouth: Normal oral and palatal mucosa present and tongue normal Throat: Yes posterior oropharynx normal Eyes General: appearance normal, both eyes and all related structures Conjunctivae: conjunctivae normal Pupils: Equal, round and reactive pupils present EOM: EOMs intact bilaterally and No Nystagmus present Neck Neck: Yes normal visual inspection, Yes full ROM and Yes no lymphadenopathy Chest Chest palpation & inspection: normal inspection of the chest Resp Effort & Inspection: normal respiratory effort Auscultation: clear to auscultation bilaterally, no crackles, no rales, no rhonchi, no wheezes and breath sounds present Cardio Rate: regular rate Rhythm: regular rhythm Peripheral pulses: radial pulses present and dorsalis pedis present GI Inspection: Yes normal to inspection and No Abdominal wall edema Palpation (GI): Soft to palpation, not firm and nontender Auscultation: normal bowel sounds Rectal Exam - Female: deferred General: Yes no CVA tenderness Back/Spine/Pelvis Back: no CVA tenderness Skin General skin exam: no rashes or lesions noted Neuro General: patient oriented x3 Cranial nerves: Yes Equal, round and reactive pupils present, Yes Midline tongue present, Yes Ability to bilaterally elevate shoulders present and No Nystagmus present Gait exam (Neuro): Normal gait present Extrem General: Yes normal to inspection, Yes full ROM, No no pedal edema and No edema Psych Speech and movement: Normal speech and movement present Affect: normal affect Insight: Good insight present (Psych) Judgement: Good judgement present (Psych) Office Procedures Flu Questionnaire Does the patient have a severe egg allergy?: No Does the patient have severe life threatening allergies?: No Does the patient have a fever or illness today?: No Has the patient ever had Guillain-[place] Syndrome?: No Has the patient ever had any past reaction to a flu shot?: No Immunizations Fluarix [id number] (PF) 45 mcg (15 mcg x 3)/0.5 mL IM syringe Performing Provider: Jazmine Youngblood PA-C [facility] [place] [facility] Administered by: JOSE ALEJANDRO Callahan on 08/10/25 10:00 Dose Route Admin Location Dispensed Lot Number Expiration Date [facility] [place] [employer] 0.5 mL IM Left Deltoid 0.5 mL [id number] 03/23/26 [id number] [employer] VIS Given Date VIS Provided VIS Publication Date 08/10/25 Single Vaccine 24 Eligibility Eligibility Date Funding Source Not [facility] Eligible 08/10/25 Private Assessment & Plan Assessment & Plan (1) Medicare annual wellness visit, subsequent: Code(s): Z00.00 - Encounter for general adult medical examination without abnormal findings Plan: Patient is up to date on all recommended routine screenings and vaccinations for her age. She is declining mammograms. She is due for flu shot which was given today. Healthy diet and regular exercise is encouraged. Blood work is up to date and has been reviewed with the patient. Plan to follow up in 6 months or sooner as needed. (2) Hyperlipemia: Code(s): E78.5 - Hyperlipidemia, unspecified Qualifiers: Hyperlipidemia type: unspecified Qualified Code(s): E78.5 - Hyperlipidemia, unspecified Plan: Avoid foods that are high in cholesterol such as red meat, fried foods, eggs and baked goods. Triglyceride goal of less than 150 and LDL goal of less than 130. Continue on Pravastatin. Ordered for repeat blood work (3) Osteopenia: Code(s): M85.80 - Other specified disorders of bone density and structure, unspecified site Plan: Continue with Vitamin D supplement and continue with increased dietary intake of calcium. (4) Obesity (BMI 30.0-34.9): Code(s): E66.811 - Obesity, class 1 Plan: Healthy diet and regular exercise is encouraged. (5) Restless leg syndrome: Comment: ropinirole and gabapentin Code(s): G25.81 - Restless legs syndrome Plan: She is currently on Gabapentin and Ropinirole and feels this is beneficial for her. Plan This note was constructed using voice recognition software. While every effort has been made to ensure accuracy and copying machine repairer, still areas may have been included sometimes these areas may affect the content or meeting of the given symptoms. Total time spent caring for the patient today was thirty minutes. This includes time spent before the visit reviewing the chart, time spent during the visit, and time spent after the visit and documentation. Patient was informed and verbally consented to the use of an ambient scribe for clinic note documentation during this visit. Orders: Orders Lipid Panel Today E78.00 - Pure hypercholesterolemia, unspecified Hemoglobin A1c Today Z13.1 - Encounter for screening for diabetes mellitus Influenza [id number] Immunization Today Z23 - Encounter for immunization Comprehensive Met. Panel Today M85.80 - Other specified disorders of bone density and structure, unspecified site, Z00.00 - Encounter for general adult medical examination without abnormal findings Medications: Refilled pravastatin 20 mg PO BEDTIME 90 tabs 0RF Discontinued tirzepatide (weight loss) (Zepbound) for 4 weeks Discontinued Reason: Insurance Denied 2.5 mg (0.5 mL) subcut QWEEK 2 mL 0RF Quality Reporting (2019) Depression/Bipolar (159/160/161/177) PHQ-9: Total score: 0 Coding Level of Care Code Medicare Subsequent (G0439) Diagnoses Medicare annual wellness visit, subsequent Z00.00 Hyperlipidemia, unspecified hyperlipidemia type E78.5 Hyperlipidemia type: unspecified Osteopenia M85.80 Obesity (BMI 30.0-34.9) E66.811 Restless leg syndrome G25.81
[2025-08-10 09:54] VITALS: BP 130/82
== END 2025-08-10 10:02 | disposition home or self-care (01) ==
LOC: HO.HMCH 09:14
DX: Z00.00 Encounter for general adult medical examination without abnormal findings (principal); E78.5 Hyperlipidemia, unspecified; M85.80 Other specified disorders of bone density and structure, unspecified site; E66.811 Obesity, class 1; Z68.30 Body mass index [BMI] 30.0-30.9, adult; G25.81 Restless legs syndrome; Z23 Encounter for immunization

== ENCOUNTER → 2025-08-10 09:13 | Outpatient (BNVA) | payer MEDICARE, SELFPAY | DX: Z00.00 Encounter for general adult medical examination without abnormal findings (principal); N64.4 Mastodynia; E78.5 Hyperlipidemia, unspecified; M85.80 Other specified disorders of bone density and structure, unspecified site; G25.81 Restless legs syndrome; E66.811 Obesity, class 1; Z23 Encounter for immunization; Z68.30 Body mass index [BMI] 30.0-30.9, adult | CPT/HCPCS: 90471; 90656; 96127 ==